=== PATIENT | male | born 1995 | race Caucasian/White ===

== ENCOUNTER 2019-04-16 20:24 | Observation (INO) | payer OTHER ==
[2019-04-16] MEDS ORDERED: SODIUM CHLORIDE 0.9% 500 ML 500 ML IV ONE (21:26)
--- NOTE | 2019-04-16 22:07 | ED ---
General Adult HPI - General Chief complaint: Recheck/Abnormal Lab/Rx Stated complaint: side affects from meds, dizziness blured vision Time Seen by Provider: 04/16/19 21:26 Source: patient Mode of arrival: ambulatory Limitations: no limitations - History of Present Illness Initial comments: Dictation was produced using [employer] dictation software. please excuse any grammatical, word or spelling errors. Chief Complaint: 33-year-old malewith past medical history presents with generalized body weakness, weakness confusion and dizziness. History of Present Illness: Male presents with affirmation complaints. Patient was given prescription for ciprofloxacin yesterday. Patient states his symptoms have been ongoing for 2-3 days. Patient has severe having had symptoms like this in the past. He is coming in by mother. Mother reports that he is significantly weak. Patient states his weakness started his upper extremities and went down to his lower extremities. He does have some left anterior neck pain. Patient denies any shortness of breath. Denies any stool or bladder incontinence. He does have some mild suprapubic tenderness. The ROS documented in this emergency department record has been reviewed and co nfirmed by me. Those systems with pertinent positive or negative responses have been documented in the HPI. All other systems are other negative and/or noncontributory. PHYSICAL EXAM: General Impression: Alert and oriented x3, not in acute distress HEENT: Normocephalic atraumatic, extra-ocular movements intact, pupils equal and reactive to light bilaterally, mucous membranes moist. Cardiovascular: Heart regular rate and rhythm, S1&S2 audible, no murmurs, rubs or gallops Chest: Lungs clear to auscultation bilaterally, no rhonchi, no wheeze, no rales Abdomen: Bowel sounds present, abdomen soft, non-tender, non-distended, no organomegaly Musculoskeletal: Pulses present and equal in all extremities, no peripheral edema Motor: no focal deficits noted Neurological: CN II-XII grossly intact, no focal motor or sensory deficits noted, 3+ out of 5 weakness to all extremities him a slow to move and slow to speak Skin: Intact with no visualized rashes ED course: 23 yo male presents with generalized body weakness. Signs upon arrival are within acceptable limits. Patient appears significantly weak. At this point highly doubt that patient's symptoms are secondary to ciprofloxacin side effect or ALLERGIC reaction. Return evaluation obtained. CBC, metabolic panel is unremarkable. Discussed patient case Dr. Adan. At this point is very unclear what is causing patient's symptoms. He is generally weak however does not have any focal neurologic deficits. This may be related to the ciprofloxacin that he was prescribed given that patient reports that her symptoms started this today and he has been on medications for approximately 2 days. Pending urine studies. We will hold ciprofloxacin for now. Patient admitted with consultation with neurology. [facility] is willing to accept patients care. EKG interpretation: Ventricular rate 67, normal sinus rhythm,. 134, care is 90, QTC 14. No IN prolongation, no QTC prolongation, no ST or T-wave changes noted. Overall, this EKG is unremarkable - Related Data Home Medications Medication Instructions Recorded Confirmed Ciprofloxacin HCl [Cipro] 500 mg PO BID 04/16/19 04/16/19 Allergies Allergy/AdvReac Type Severity Reaction Status Date / Time ceftibuten dihydrate Allergy Rash/Hives Verified 04/16/19 21:30 [From Cedax] sulfamethoxazole Allergy Rash/Hives Verified 04/16/19 21:30 [From Bactrim] trimethoprim [From Bactrim] Allergy Rash/Hives Verified 04/16/19 21:30 Review of Systems ROS Statement: Those systems with pertinent positive or pertinent negative responses have been documented in the HPI. ROS Other: All systems not noted in ROS Statement are negative. Past Medical History Past Medical History: No Reported History History of Any Multi-Drug Resistant Organisms: None Reported Past Surgical History: No Surgical Hx Reported Past Psychological History: No Psychological Hx Reported Smoking Status: Current every day smoker Past Alcohol Use History: Occasional Past Drug Use History: None Reported General Exam Limitations: no limitations Course Vital Signs 04/16/19 21:16 Temperature 97.9 F Pulse Rate 70 Respiratory 16 Rate Blood Pressure 105/73 O2 Sat by Pulse 99 Oximetry Medical Decision Making - Lab Data Result diagrams: 04/16/19 21:41 04/16/19 21:41 Lab Results 04/16/19 04/16/19 04/16/19 Range/Units 21:41 21:41 22:15 WBC 6.8 (3.8-10.6) k/uL RBC 4.87 (4.30-5.90) m/uL Hgb 14.8 (13.0-17.5) gm/dL Hct 43.8 (39.0-53.0) % MCV 89.9 (80.0-100.0) fL MCH 30.4 (25.0-35.0) pg MCHC 33.8 (31.0-37.0) g/dL RDW 12.4 (11.5-15.5) % Plt Count 235 (150-450) k/uL Neutrophils % 61 % Lymphocytes % 27 % Monocytes % 7 % Eosinophils % 2 % Basophils % 1 % Neutrophils # 4.2 (1.3-7.7) k/uL Lymphocytes # 1.8 (1.0-4.8) k/uL Monocytes # 0.5 (0-1.0) k/uL Eosinophils # 0.2 (0-0.7) k/uL Basophils # 0.1 (0-0.2) k/uL Sodium 143 (137-145) mmol/L Potassium 3.9 (3.5-5.1) mmol/L Chloride 105 (98-107) mmol/L Carbon Dioxide 27 (22-30) mmol/L Anion Gap 11 mmol/L BUN 20 (9-20) mg/dL Creatinine 1.03 (0.66-1.25) mg/dL Est GFR (CKD-EPI)AfAm >90 (>60 ml/min/1.73 sqM) Est GFR (CKD-EPI)NonAf >90 (>60 ml/min/1.73 sqM) Glucose 83 (74-99) mg/dL Plasma Lactic Acid Jarred (0.7-2.0) mmol/L Calcium 9.5 (8.4-10.2) mg/dL Magnesium 2.1 (1.6-2.3) mg/dL Total Bilirubin 2.2 H (0.2-1.3) mg/dL AST 19 (17-59) U/L ALT 17 L (21-72) U/L Alkaline Phosphatase 58 (38-126) U/L Creatine Kinase 93 (55-170) U/L Total Protein 7.1 (6.3-8.2) g/dL Albumin 4.6 (3.5-5.0) g/dL 04/16/19 Range/Units 22:15 WBC (3.8-10.6) k/uL RBC (4.30-5.90) m/uL Hgb (13.0-17.5) gm/dL Hct (39.0-53.0) % MCV (80.0-100.0) fL MCH (25.0-35.0) pg MCHC (31.0-37.0) g/dL RDW (11.5-15.5) % Plt Count (150-450) k/uL Neutrophils % % Lymphocytes % % Monocytes % % Eosinophils % % Basophils % % Neutrophils # (1.3-7.7) k/uL Lymphocytes # (1.0-4.8) k/uL Monocytes # (0-1.0) k/uL Eosinophils # (0-0.7) k/uL Basophils # (0-0.2) k/uL Sodium (137-145) mmol/L Potassium (3.5-5.1) mmol/L Chloride (98-107) mmol/L Carbon Dioxide (22-30) mmol/L Anion Gap mmol/L BUN (9-20) mg/dL Creatinine (0.66-1.25) mg/dL Est GFR (CKD-EPI)AfAm (>60 ml/min/1.73 sqM) Est GFR (CKD-EPI)NonAf (>60 ml/min/1.73 sqM) Glucose (74-99) mg/dL Plasma Lactic Acid Jarred 0.8 (0.7-2.0) mmol/L Calcium (8.4-10.2) mg/dL Magnesium (1.6-2.3) mg/dL Total Bilirubin (0.2-1.3) mg/dL AST (17-59) U/L ALT (21-72) U/L Alkaline Phosphatase (38-126) U/L Creatine Kinase (55-170) U/L Total Protein (6.3-8.2) g/dL Albumin (3.5-5.0) g/dL Disposition Clinical Impression: Generalized weakness Disposition: ADMITTED IP TO THIS HOSP Condition: Fair Is patient prescribed a controlled substance at d/c from ED?: No Referrals: Elvis Adan MD [Primary Care Provider] - 1-2 days Decision Time: 00:48
[2019-04-16 22:40] LABS: Magnesium 2.1 mg/dL (1.6-2.3)
--- NOTE | 2019-04-16 23:40 | XR ---
EXAM: XR Chest, 2 Views CLINICAL HISTORY: Chest pain TECHNIQUE: Frontal and lateral views of the chest. COMPARISON: 08/27/2014 FINDINGS: Lungs: Lungs are well aerated. Pleural space: No pneumothorax. No pleural effusions. Heart: Heart is normal in size. Mediastinum: Unremarkable. Bones/joints: No rib fracture. Gentle dextro scoliosis of the thoracic spine. IMPRESSION: No active disease, similar to the previous study.
--- NOTE | 2019-04-16 23:50 | CT ---
EXAM: CT Head Without Intravenous Contrast CLINICAL HISTORY: Headache and neck pain. TECHNIQUE: Axial computed tomography images of the head/brain without intravenous contrast. CTDI is 45.2 mGy and DLP is 996 mGy-cm. This CT exam was performed using one or more of the following dose reduction techniques: automated exposure control, adjustment of the mA and/or kV according to patient size, and/or use of iterative reconstruction technique. CTDI is 11.9 mGy and DLP is 359.9 mGy-cm. This CT exam was performed using one or more of the following dose reduction techniques: automated exposure control, adjustment of the mA and/or kV according to patient size, and/or use of iterative reconstruction technique. COMPARISON: None, None FINDINGS: Brain: No abnormal extra-axial collection. No hemorrhage. Midline shift: No midline shift or mass-effect. Ventricles: Ventricular system is age appropriate. Bones/joints: Bony skull is unremarkable. Straightening and reversal of the curvature of the cervical spine suggestive of muscle spasm. Normal relationship of C1 and C2. Probable hemangioma of the T3 vertebral body incidentally imaged. No acute fracture. Soft tissues: Prevertebral soft tissues are unremarkable. Lung apices are unremarkable. Paraspinal soft tissues are unremarkable. Sinuses: Unremarkable as visualized. No acute sinusitis. Mastoid air cells: Visualized sinuses and mastoid air cells are unremarkable. Other findings: Spinous processes are unremarkable. Transaxial imaging revealed no significant focal abnormalities. IMPRESSION: Straightening and reversal of the curvature of the cervical spine, possibly on the basis of muscle spasm. No acute intracranial pathology.
[2019-04-17 00:34] LABS: Basophils # (A) 0.1 k/uL (0-0.2); Basophils % (A) 1 %; Eosinophils # (A) 0.2 k/uL (0-0.7); Eosinophils % (A) 2 %; HCT 43.8 % (39.0-53.0); HGB 14.8 gm/dL (13.0-17.5); Lymphocytes # (A) 1.8 k/uL (1.0-4.8); Lymphocytes % (A) 27 %; MCH 30.4 pg (25.0-35.0); MCHC 33.8 g/dL (31.0-37.0); MCV 89.9 fL (80.0-100.0); Mean Platelet Volume 7.1; Monocytes # (A) 0.5 k/uL (0-1.0); Monocytes % (A) 7 %; Neutrophils # (A) 4.2 k/uL (1.3-7.7); Neutrophils % (A) 61 %; Platelet Count 235 k/uL (150-450); RBC 4.87 m/uL (4.30-5.90); RDW 12.4 % (11.5-15.5); WBC 6.8 k/uL (3.8-10.6)
[2019-04-17] MEDS ORDERED: NALOXONE 0.4 MG/ML 1 ML VIAL IV PRN (00:36)
[2019-04-17 00:38] LABS: ALT 17 U/L (21-72); AST 19 U/L (17-59); African American GFR (CKD) >90 (>60 ml/min/1.73 sqM); Albumin 4.6 g/dL (3.5-5.0); Alkaline Phosphatase 58 U/L (38-126); Anion Gap 11 mmol/L; Blood Urea Nitrogen 20 mg/dL (9-20); Calcium 9.5 mg/dL (8.4-10.2); Carbon Dioxide 27 mmol/L (22-30); Chloride 105 mmol/L (98-107); Glucose 83 mg/dL (74-99); Potassium 3.9 mmol/L (3.5-5.1); Sodium 143 mmol/L (137-145); Total Bilirubin 2.2 mg/dL (0.2-1.3); Total Protein 7.1 g/dL (6.3-8.2)
[2019-04-17] MEDS ORDERED: SODIUM CHLORIDE 0.9% 1,000 ML IV SCH (00:45)
[2019-04-17 00:46] LABS: Partial Thromboplastin Time 26.3 sec (22.0-30.0); Prothrombin Time 10.6 sec (9.0-12.0)
[2019-04-17 00:57] LABS: Appearance,Urine Clear (Clear); Bilirubin,Urine Negative (Negative); Blood,Urine Negative (Negative); Color,Urine Yellow; Glucose,Urine (UA) Negative (Negative); Ketones,Urine Negative (Negative); Leukocyte Esterase,Urine Negative (Negative); Nitrite,Urine Negative (Negative); Protein,Urine Trace (Negative); Specific Gravity,Urine 1.029 (1.001-1.035); Urobilinogen,Urine <2.0 mg/dL (<2.0)
[2019-04-17 01:13] LABS: Amphetamine Screen,Urine Not Detected (NotDetected); Barbiturate Screen,Urine Not Detected (NotDetected); Benzodiazepines Screen,Urine Not Detected (NotDetected); Cocaine Screen,Urine Not Detected (NotDetected); Methadone Screen, Urine Not Detected (NotDetected); Opiate Screen,Urine Not Detected (NotDetected); Oxycodone Screen, Urine Not Detected (NotDetected); Phencyclidine Screen,Urine Not Detected (NotDetected); Tricyclic Antidepressant,Urine Not Detected (NotDetected); Urn Cannabinoid Scrn Not Detected (NotDetected)
[2019-04-17 03:57] VITALS: BMI 20.2
--- NOTE | 2019-04-17 08:21 | P.HPIM ---
History of Present Illness H&P Date: 04/17/19 Chief Complaint: Generalized weakness. This is a history and physical on a 23-year-old white male who was supposedly given ciprofloxacin for UTI symptomatology. Shortly after this episode of taking the medication, he had sudden onset of generalized weakness and dizziness he states intermittent blurry vision which resolved once he came to the emergency room. He now presents because of significant weakness. No history of illicit substance abuse stated. No overt nausea or vomiting. But upper extremity weakness is noted on examination. He is also having significant lower extremity weakness. No overt numbness or tingling. Cranial nerve testing does not reveal any type of abnormality. Pupils are equal and he seems more weak on the motor aspect of his examination. No appetite issues. No voiding difficulties. No overt saddle numbness. Review of Systems Constitutional: Denies chills, Denies fever Eyes: bilateral blurred vision, denies pain Ears, nose, mouth and throat: Denies headache, Denies sore throat Cardiovascular: Denies chest pain, Denies shortness of breath Respiratory: Denies cough Gastrointestinal: Denies abdominal pain, Denies diarrhea, Denies nausea, Denies vomiting Musculoskeletal: Reports muscle weakness Integumentary: Denies pruritus, Denies rash Neurological: Reports balance difficulties, Reports numbness, Reports weakness, Denies headaches, Denies syncope, Denies tremors Psychiatric: Denies anxiety, Denies depression Endocrine: Denies fatigue, Denies weight change Past Medical History Past Medical History: No Reported History History of Any Multi-Drug Resistant Organisms: None Reported Past Surgical History: No Surgical Hx Reported Past Psychological History: No Psychological Hx Reported Smoking Status: Current every day smoker Past Alcohol Use History: Occasional Past Drug Use History: None Reported - Past Family History Mother Family Medical History: No Reported History Medications and Allergies Home Medications Medication Instructions Recorded Confirmed Type Ciprofloxacin HCl [Cipro] 500 mg PO BID 04/16/19 04/16/19 History Allergies Allergy/AdvReac Type Severity Reaction Status Date / Time ceftibuten dihydrate Allergy Rash/Hives Verified 04/16/19 21:30 [From Cedax] sulfamethoxazole Allergy Rash/Hives Verified 04/16/19 21:30 [From Bactrim] trimethoprim [From Bactrim] Allergy Rash/Hives Verified 04/16/19 21:30 Physical Exam Vitals: Vital Signs Temp Pulse Pulse Resp BP BP Pulse Ox 04/17/19 04:41 97.5 F L 54 L 16 100/64 99 04/17/19 02:35 97.8 F 58 L 16 100/59 99 04/17/19 01:20 54 L 16 97/67 97 04/16/19 21:16 97.9 F 70 16 105/73 99 Intake and Output 04/16/19 04/17/19 04/17/19 22:59 06:59 14:59 Intake Total 460 Balance 460 Intake: Intake, IV Titration 100 Amount Sodium Chloride 0.9% 1, 100 000 ml @ 20 mls/hr IV . Q24H [facility] Rx#:[id number] Oral 360 Other: Weight 60.464 kg - Constitutional General appearance: no acute distress - EENT Eyes: EOMI - Neck Neck: no lymphadenopathy - Respiratory Respiratory: bilateral: CTA - Cardiovascular Rhythm: regular Heart sounds: normal: S1, S2 Abnormal Heart Sounds: no S3 Gallop - Gastrointestinal General gastrointestinal: no soft, no tenderness - Integumentary Integumentary: no cellulitis - Musculoskeletal There is significant weakness on pet handler strength of the arms/hands bilaterally. I would rate 4/5 to dorsiflexion bilaterally with 4/5 plantar flexion lower extremities. He he does not state any difference in feeling to gross touch in the extremities bilaterally however. - Psychiatric Psychiatric: A&O x's 3, appropriate affect, intact judgment & insight Results CBC & Chem 7: 04/16/19 21:41 04/16/19 21:41 Labs: Abnormal Lab Results - Last 24 Hours (Table) 04/16/19 04/17/19 Range/Units 21:41 00:38 Total Bilirubin 2.2 H (0.2-1.3) mg/dL ALT 17 L (21-72) U/L Urine Protein Trace H (Negative) Thrombosis Risk Factor Assmnt - Choose All That Apply Any of the Below Risk Factors Present?: No Other Risk Factors: No Other congenital or acquired thrombophilia - If yes, enter type in comment: No Thrombosis Risk Factor Assessment Level: Very Low Risk Assessment and Plan (1) Medication side effect Current Visit: Yes Status: Acute Code(s): T88.7XXA - UNSP ADVERSE EFFECT OF DRUG OR MEDICAMENT, INIT ENCNTR SNOMED Code(s): 277773321 (2) Generalized weakness Current Visit: Yes Status: Acute Code(s): R53.1 - WEAKNESS SNOMED Code(s): 64287246 Plan: Given his neurologic presentation, await consultation from neurologic service. Check TSH and thyroid studies if not done on admission. Otherwise laboratory examination will be reviewed. Question need for PT if he does not significantly improve. He does not present with any type of meningeal signs at this time. Otherwise, affect seems flat. Time with Patient: Greater than 30
[2019-04-17] MEDS ORDERED: ACETAMINOPHEN TAB 325 MG TAB PO PRN (16:45)
[2019-04-17] MEDS ORDERED: PANTOPRAZOLE 40 MG TABLET PO SCH (17:00)
[2019-04-17 20:16] VITALS: BP 95/53; PULSE 57; RESP 16; TEMP 98.6
--- NOTE | 2019-04-17 23:48 | P.CNNES ---
History of Present Illness Consult date: 04/17/19 Reason for Consult: Neuropathy Chief complaint: UTI, sudden onset generalized weakness and dizziness with intermittent blur History of Present Illness: REFERRING PHYSICIAN: Dr. Teodoro Funk HISTORY OF PRESENT ILLNESS: Thank you for allowing me to evaluate Gabriele Church. Ms. Church is a 23-year-old man with no known past medical history presented to [facility] for LE weakness x 1 day. Patient's mother is at bedside. Two days ago, patient had an abdominal pain (unlike usual stomach pains) for which he went to an OSH, diagnosed with UTI and given ciprofloxacin. There was an episode of severe diarrhea x1 that they're not sure when exactly happened. Patient took the medication and stayed at his mother's place to recuperate. The day after, patient started having weakness in his legs and also started involving his arms soon after. He's not sure if the leg weakness started from his feet and ascended or the entire leg acutely became weak all together. Patient reporting blurred vision during this episode. Patient denies any numbness or tingling in his arms or legs. Patient denies any recent sickness, headache, fever, nausea, vomiting, travel, sick contact. Never had a similar episode before. Patient denies having saddle anesthesia (any decreased sensation when he wiped himself this morning) Patient states that he is having BM and have urinated, but not since 9am this morning (patient evaluated at 6pm). Patient doesn't feel the need to go to the bathroom. Bladder screen showing 340cc of volume, and when patient tried to urinate, could not get much out. PAST MEDICAL HISTORY: No known past medical history PAST SURGICAL HISTORY: No surgical history HOME MEDICATIONS: Ciprofloxacin. ALLERGIES: Sulfamethoxazole, trimethoprim, ceftibuten SOCIAL HISTORY: Current smoker. Social drinker. FAMILY HISTORY: No hx of neuroloigcal condition. REVIEW OF SYSTEMS: The 14 systems are reviewed and no additional points are identified compared to the review of systems documented history and physical PHYSICAL EXAMINATION: VITAL SIGNS: T 98.6 HR 57 RR 16 BP 95/53 O2 sat 97% on RA GEN.: NAD, pleasant and cooperative HEENT: NCAT, sclera without icterus NECK: Supple SKIN AND EXTREMITIES: Warm to touch, no edema NEURO: MENTAL STATUS: Patient alert and oriented to self, place, time. Able to name the current president. Speech fluent, able to name and repeat, following all commands readily. No right and left disorientation, extinction to double simultaneous stimulation, finger agnosia, neglect. CRANIAL NERVES II THROUGH XII: II: Pupils are equal and reactive to light symmetrically. No afferent pupillary defect. Visual hammond are intact. III, IV, : No ptosis. Extraocular movements full. No nystagmus. V: Facial sensation intact from V1-3. VII. No clear facial asymmetry. VIII: Hearing intact to finger rub bilaterally. IX, X: Symmetric palate elevation. XI: Shoulder shrug intact. XII: Tongue midline without fasciculation or atrophy. MOTOR: Normal bulk. Decreased tone. 3/5 in all 4 extremities SENSORY: Intact to light touch. Decreased to temperature and pinprick in b/l UE but intact in b/l LE. Vibration intact in all 4 extremities. Trunk sensation intact. REFLEXES: Brisk throughout. Toes are downgoing. Shabana's is absent. Patient refused getting rectal tone checked. COORDINATION: Finger to nose intact although limited by weakness. No dy smetria. GAIT: Deferred due to LE weakness. DIAGNOSTIC TESTING: LABORATORY: WBC 6.8 hemoglobin 14.8 platelet 235 PT 10.6 INR 1.0 sodium 143 potassium 3.9 chloride 105 bicarb 27 BUN 20 creatinine 1.03 AST 19 ALT 17 alk phos 58 urinalysis negative urine toxicology negative IMAGING: CT head and neck without contrast 04/16/2019: Straightening and reversal of the curvature of the cervical spine, possibly on the basis of muscle spasm. No acute intracranial pathology. ASSESSMENT: Ms. Church is a 23-year-old man with no known past medical history presented to [facility] for LE weakness x 1 day. There's an acute change in weakness in 1 day, involving both b/l UE and LE. It is unusual that the sensation deficits (decreased temperature and pinprick) is only present in b/l UE. Patient showing weakness in all 4 extremities however along with most likely urinary retention and brisk reflexes throughout. There is concern about myelopathy causing his symptoms. Coordinating with [facility] for transfer for LP, MRI c-/t-/l-spine along with possible neurosurgery consult. RECOMMENDATIONS: 1. Transfer to [facility] 2. Lumbar Puncture for CSF RBC, WBC, protein, glucose, culture 3. MRI c-/t-/l-spine 4. Neurology consult 5. Neurosurgery consult 6. Please feel free to contact me regarding this patient at any time with additional questions or concerns. Past Medical History Past Medical History: No Reported History History of Any Multi-Drug Resistant Organisms: None Reported Past Surgical History: No Surgical Hx Reported Past Psychological History: No Psychological Hx Reported Smoking Status: Current every day smoker Past Alcohol Use History: Occasional Past Drug Use History: None Reported - Past Family History Mother Family Medical History: No Reported History Medications and Allergies Home Medications Medication Instructions Recorded Confirmed Type Ciprofloxacin HCl [Cipro] 500 mg PO BID 04/16/19 04/16/19 History Allergies Allergy/AdvReac Type Severity Reaction Status Date / Time ceftibuten dihydrate Allergy Rash/Hives Verified 04/16/19 21:30 [From Cedax] sulfamethoxazole Allergy Rash/Hives Verified 04/16/19 21:30 [From Bactrim] trimethoprim [From Bactrim] Allergy Rash/Hives Verified 04/16/19 21:30 Physical Examination - Vital Signs Vital Signs: Vital Signs Temp Pulse Pulse Resp BP BP Pulse Ox 04/17/19 04:41 97.5 F L 54 L 16 100/64 99 04/17/19 02:35 97.8 F 58 L 16 100/59 99 04/17/19 01:20 54 L 16 97/67 97 04/16/19 21:16 97.9 F 70 16 105/73 99 Intake and Output 04/16/19 04/17/19 04/17/19 22:59 06:59 14:59 Intake Total 460 Balance 460 Intake: Intake, IV Titration 100 Amount Sodium Chloride 0.9% 1, 100 000 ml @ 20 mls/hr IV . Q24H [facility] Rx#:[id number] Oral 360 Other: Weight 60.464 kg Results - Laboratory Findings CBC and BMP: 04/16/19 21:41 04/16/19 21:41 Abnormal Lab Findings: Abnormal Labs 04/16/19 04/17/19 21:41 00:38 Total Bilirubin 2.2 H ALT 17 L Urine Protein Trace H
== END 2019-04-18 | disposition other institution (70) ==
LOC: EC 20:24 → 3NMEDONC 04-17 00:36
PROVIDERS: ADMIT Family Medicine; ATTEND Family Medicine
DX: R53.1 Weakness (principal); T36.8X5A Adverse effect of other systemic antibiotics, initial encounter; R42 Dizziness and giddiness; R41.0 Disorientation, unspecified; M54.2 Cervicalgia; H53.8 Other visual disturbances; F17.200 Nicotine dependence, unspecified, uncomplicated; Z88.2 Allergy status to sulfonamides; Z88.1 Allergy status to other antibiotic agents
CPT/HCPCS: 99285; 51798; 36415; 93005; 97116; 97161; 80053; 84443; 82550; 83605; 83735; 84484; 85025; 85610; 85730; 81003; 80306; 87086; 71046; 72125; 70450; G0378

== ENCOUNTER 2019-05-09 23:38 | Emergency (ER) | payer OTHER ==
[2019-05-09 23:49] VITALS: BP 113/73; PULSE 69; RESP 18; TEMP 98
[2019-05-10] MEDS ORDERED: IBUPROFEN 600 MG TAB PO STA (00:22)
--- NOTE | 2019-05-10 00:45 | XR ---
EXAMINATION TYPE: XR foot complete RT DATE OF EXAM: 05/10/2019 COMPARISON: NONE HISTORY: Foot pain TECHNIQUE: 3 views FINDINGS: Metatarsals are intact. I see no fracture nor dislocation. Joint spaces are fairly normal. IMPRESSION: Negative right foot exam.
--- NOTE | 2019-05-10 00:56 | ED ---
Lower Extremity Injury HPI - General Chief Complaint: Extremity Injury, Lower Stated Complaint: Foot pain Time Seen by Provider: 05/10/19 00:05 Source: patient Mode of arrival: ambulatory Limitations: no limitations - History of Present Illness Initial Comments: is 23-year-old man who comes in with complaint that he has developed right foot pain over the past days. Patient denies any known injury to his foot. He states that is mainly when he attempts to bear weight and he indicates the area below the first 3 metatarsals. Patient states that the pain is better when he is not bearing weight. Patient denies fever or chills. He has not had any redness or warmth to the foot. MD Complaint: foot injury -: week(s) Injury: Foot: Right Place: home Severity: moderate Improves With: nothing Worsens With: weight bearing - Related Data Home Medications Medication Instructions Recorded Confirmed Ciprofloxacin HCl [Cipro] 500 mg PO BID 04/16/19 04/16/19 Previous Rx's Medication Instructions Recorded Ibuprofen [Motrin] 600 mg PO Q8HR PRN #20 tab 05/10/19 Allergies Allergy/AdvReac Type Severity Reaction Status Date / Time ceftibuten dihydrate Allergy Rash/Hives Verified 04/16/19 21:30 [From Cedax] ciprofloxacin Allergy Unknown Verified 05/09/19 23:49 sulfamethoxazole Allergy Rash/Hives Verified 04/16/19 21:30 [From Bactrim] trimethoprim [From Bactrim] Allergy Rash/Hives Verified 04/16/19 21:30 Review of Systems ROS Statement: Those systems with pertinent positive or pertinent negative responses have been documented in the HPI. ROS Other: All systems not noted in ROS Statement are negative. Constitutional: Denies: fever, chills, weakness Cardiovascular: Denies: chest pain, palpitations Musculoskeletal: Reports: as per HPI, arthralgia Skin: Denies: rash, lesions Neurological: Denies: weakness, numbness, paresthesias Past Medical History Past Medical History: No Reported History History of Any Multi-Drug Resistant Organisms: None Reported Past Surgical History: No Surgical Hx Reported Past Psychological History: No Psychological Hx Reported Smoking Status: Current every day smoker Past Alcohol Use History: Occasional Past Drug Use History: None Reported - Past Family History Mother Family Medical History: No Reported History General Exam Limitations: no limitations General appearance: alert, in no apparent distress Cardiovascular Exam: Present: other (Dorsalis pedis and posterior tibialis pulses normal, right foot. Capillary refill normal.) Extremities exam: Present: normal inspection, full ROM, tenderness, normal capillary refill, other (Is tenderness along the origin of the plantar fascia below the first three metatarsals). Absent: pedal edema Neurological exam: Present: alert. Absent: motor sensory deficit Course Vital Signs 05/09/19 23:46 Temperature 98 F Pulse Rate 69 Respiratory 18 Rate Blood Pressure 113/73 O2 Sat by Pulse 100 Oximetry Disposition Clinical Impression: Foot pain, right, Plantar fasciitis of right foot Disposition: HOME SELF-CARE Condition: Good Instructions (If sedation given, give patient instructions): Plantar Fasciitis (ED) Prescriptions: Ibuprofen [Motrin] 600 mg PO Q8HR PRN #20 tab PRN Reason: Pain Is patient prescribed a controlled substance at d/c from ED?: No Referrals: None,Stated [Primary Care Provider] - 1-2 days
== END 2019-05-10 01:57 | disposition home or self-care (01) ==
LOC: EC 23:38
DX: M72.2 Plantar fascial fibromatosis (principal); F17.200 Nicotine dependence, unspecified, uncomplicated; Z88.1 Allergy status to other antibiotic agents; Z88.2 Allergy status to sulfonamides
CPT/HCPCS: 99283

== ENCOUNTER 2019-08-21 21:41 | Emergency (ER) | payer OTHER ==
[2019-08-21 21:47] LABS: Glucose,Whole Blood 84 mg/dL (75-99)
[2019-08-21] MEDS ORDERED: SODIUM CHLORIDE 0.9% 1,000 ML IV STA ×2 (21:48)
--- NOTE | 2019-08-21 21:48 | ED ---
Seizure HPI - General Stated Complaint: seizure Time Seen by Provider: 08/21/19 21:47 - History of Present Illness Initial Comments: Gabriele is a pleasant previously healthy 23-year-old male who is brought to the ER today via ambulance for evaluation of possible seizure-like activity. Mom reports that she was at home when she got a call that he was having a seizure. She went there and noticed about 10 minutes of him shaking. She states that she was able to talk to him during this and bring him out of it. Afterwards he wasn't speaking. After 10 minutes of seizure she contacted EMS who arrived. She reported he had approximately 20 minutes of shaking prior to EMS arrival. He wasn't speaking after the event. He had no tongue biting no loss of bowel or bladder continence. He has no seizure history. Denies any drug or alcohol use. - Related Data Home Medications Medication Instructions Recorded Confirmed Ciprofloxacin HCl [Cipro] 500 mg PO BID 04/16/19 04/16/19 Previous Rx's Medication Instructions Recorded Ibuprofen [Motrin] 600 mg PO Q8HR PRN #20 tab 05/10/19 Allergies Allergy/AdvReac Type Severity Reaction Status Date / Time ceftibuten dihydrate Allergy Rash/Hives Verified 04/16/19 21:30 [From Cedax] ciprofloxacin Allergy Unknown Verified 05/09/19 23:49 sulfamethoxazole Allergy Rash/Hives Verified 04/16/19 21:30 [From Bactrim] trimethoprim [From Bactrim] Allergy Rash/Hives Verified 04/16/19 21:30 Review of Systems ROS Statement: Those systems with pertinent positive or pertinent negative responses have been documented in the HPI. ROS Other: All systems not noted in ROS Statement are negative. Past Medical History Past Medical History: No Reported History History of Any Multi-Drug Resistant Organisms: None Reported Past Surgical History: No Surgical Hx Reported Past Psychological History: No Psychological Hx Reported Smoking Status: Current every day smoker Past Alcohol Use History: Occasional Past Drug Use History: None Reported - Past Family History Mother Family Medical History: No Reported History General Exam - General Exam Comments Initial Comments: Physical Exam GENERAL: Patient is well-developed and well-nourished. Patient is nontoxic and well-hydrated and is in no distress. HENT: Normocephalic, Atraumatic. EYES: PERRL, EOMI PULMONARY: Unlabored respirations. No audible rales rhonchi or wheezing was noted. CARDIOVASCULAR: There is a regular rate and rhythm without any murmurs gallops or rubs. ABDOMEN: Soft and nontender with normal bowel sounds. SKIN: Skin is clear with no lesions or rashes and otherwise unremarkable. : Deferred NEUROLOGIC: Patient is alert and oriented x3. Moving all extremities spontaneously MUSCULOSKELETAL: Normal extremities with adequate strength and full range of motion. No lower extremity swelling or edema. No calf tenderness. PSYCHIATRIC: Normal psychiatric evaluation. Course Vital Signs 08/21/19 21:43 Temperature 98.9 F Pulse Rate 68 Respiratory 18 Rate Blood Pressure 113/87 O2 Sat by Pulse 100 Oximetry Medical Decision Making - Medical Decision Making The patient was seen and evaluated, upon arrival patient would make eye contact when I said his voice but was not answering any questions. Mother provided history. Labs were obtained. Patient was moving all extremities breathing sp ontaneously normal vital signs. Labs and head CT were unremarkable lactic acid was not elevated Return to the room to reevaluate the patient reports he's feeling much better. Patient states that he aches everything that happened today is due to stress. Patient states he has a friend who has terminal cancer who is been made hospice and they're expecting him to in the next week. He states that he just is having trouble coping with all of this. At this time patient and mom are comfortable with plan for discharge home and outpatient follow-up. - Lab Data Result diagrams: 08/21/19 21:55 08/21/19 21:55 Lab Results 08/21/19 08/21/19 08/21/19 Range/Units 21:46 21:55 21:55 WBC 6.4 (3.8-10.6) k/uL RBC 5.14 (4.30-5.90) m/uL Hgb 15.5 (13.0-17.5) gm/dL Hct 46.8 (39.0-53.0) % MCV 91.0 (80.0-100.0) fL MCH 30.2 (25.0-35.0) pg MCHC 33.1 (31.0-37.0) g/dL RDW 11.6 (11.5-15.5) % Plt Count 215 (150-450) k/uL Neutrophils % 58 % Lymphocytes % 27 % Monocytes % 7 % Eosinophils % 3 % Basophils % 1 % Neutrophils # 3.7 (1.3-7.7) k/uL Lymphocytes # 1.8 (1.0-4.8) k/uL Monocytes # 0.5 (0-1.0) k/uL Eosinophils # 0.2 (0-0.7) k/uL Basophils # 0.1 (0-0.2) k/uL Sodium 139 (137-145) mmol/L Potassium 4.1 (3.5-5.1) mmol/L Chloride 105 (98-107) mmol/L Carbon Dioxide 26 (22-30) mmol/L Anion Gap 8 mmol/L BUN 19 (9-20) mg/dL Creatinine 1.10 (0.66-1.25) mg/dL Est GFR (CKD-EPI)AfAm >90 (>60 ml/min/1.73 sqM) Est GFR (CKD-EPI)NonAf >90 (>60 ml/min/1.73 sqM) Glucose 88 (74-99) mg/dL POC Glucose (mg/dL) 84 (75-99) mg/dL POC Glu Welt Tr[employer] Machine Operator ID [facility] Plasma Lactic Acid Jarred (0.7-2.0) mmol/L Calcium 9.6 (8.4-10.2) mg/dL Total Bilirubin 1.6 H (0.2-1.3) mg/dL AST 21 (17-59) U/L ALT 15 (4-49) U/L Alkaline Phosphatase 60 (38-126) U/L Total Protein 7.3 (6.3-8.2) g/dL Albumin 4.6 (3.5-5.0) g/dL Urine Color Urine Appearance (Clear) Urine pH (5.0-8.0) Ur Specific [place] (1.001-1.035) Urine Protein (Negative) Urine Glucose (UA) (Negative) Urine Ketones (Negative) Urine Blood (Negative) Urine Nitrite (Negative) Urine Bilirubin (Negative) Urine Urobilinogen (<2.0) mg/dL Ur Leukocyte Esterase (Negative) Urine RBC (0-5) /hpf Urine WBC (0-5) /hpf Salicylates <1.0 mg/dL Urine Opiates Screen (NotDetected) Ur Oxycodone Screen (NotDetected) Urine Methadone Screen (NotDetected) Ur Propoxyphene Screen (NotDetected) Acetaminophen <10.0 ug/mL Ur Barbiturates Screen (NotDetected) U Tricyclic Antidepress (NotDetected) Ur Phencyclidine Scrn (NotDetected) Ur Amphetamines Screen (NotDetected) U Methamphetamines Scrn (NotDetected) U Benzodiazepines Scrn (NotDetected) Urine Cocaine Screen (NotDetected) U Marijuana (THC) Screen (NotDetected) Serum Alcohol <10 mg/dL 08/21/19 08/21/19 Range/Units 21:55 22:21 WBC (3.8-10.6) k/uL RBC (4.30-5.90) m/uL Hgb (13.0-17.5) gm/dL Hct (39.0-53.0) % MCV (80.0-100.0) fL MCH (25.0-35.0) pg MCHC (31.0-37.0) g/dL RDW (11.5-15.5) % Plt Count (150-450) k/uL Neutrophils % % Lymphocytes % % Monocytes % % Eosinophils % % Basophils % % Neutrophils # (1.3-7.7) k/uL Lymphocytes # (1.0-4.8) k/uL Monocytes # (0-1.0) k/uL Eosinophils # (0-0.7) k/uL Basophils # (0-0.2) k/uL Sodium (137-145) mmol/L Potassium (3.5-5.1) mmol/L Chloride (98-107) mmol/L Carbon Dioxide (22-30) mmol/L Anion Gap mmol/L BUN (9-20) mg/dL Creatinine (0.66-1.25) mg/dL Est GFR (CKD-EPI)AfAm (>60 ml/min/1.73 sqM) Est GFR (CKD-EPI)NonAf (>60 ml/min/1.73 sqM) Glucose (74-99) mg/dL POC Glucose (mg/dL) (75-99) mg/dL POC Glu [employer] Operator ID Plasma Lactic Acid Jarred 0.9 (0.7-2.0) mmol/L Calcium (8.4-10.2) mg/dL Total Bilirubin (0.2-1.3) mg/dL AST (17-59) U/L ALT (4-49) U/L Alkaline Phosphatase (38-126) U/L Total Protein (6.3-8.2) g/dL Albumin (3.5-5.0) g/dL Urine Color Light Yellow Urine Appearance Clear (Clear) Urine pH 6.5 (5.0-8.0) Ur Specific [place] 1.008 (1.001-1.035) Urine Protein Negative (Negative) Urine Glucose (UA) Negative (Negative) Urine Ketones Negative (Negative) Urine Blood Trace H (Negative) Urine Nitrite Negative (Negative) Urine Bilirubin Negative (Negative) Urine Urobilinogen <2.0 (<2.0) mg/dL Ur Leukocyte Esterase Negative (Negative) Urine RBC 1 (0-5) /hpf Urine WBC 1 (0-5) /hpf Salicylates mg/dL Urine Opiates Screen Not Detected (NotDetected) Ur Oxycodone Screen Not Detected (NotDetected) Urine Methadone Screen Not Detected (NotDetected) Ur Propoxyphene Screen Not Detected (NotDetected) Acetaminophen ug/mL Ur Barbiturates Screen Not Detected (NotDetected) U Tricyclic Antidepress Not Detected (NotDetected) Ur Phencyclidine Scrn Not Detected (NotDetected) Ur Amphetamines Screen Not Detected (NotDetected) U Methamphetamines Scrn Not Detected (NotDetected) U Benzodiazepines Scrn Not Detected (NotDetected) Urine Cocaine Screen Not Detected (NotDetected) U Marijuana (THC) Screen Not Detected (NotDetected) Serum Alcohol mg/dL Disposition Clinical Impression: Seizure-like activity Disposition: HOME SELF-CARE Condition: Stable Instructions (If sedation given, give patient instructions): New-Onset Seizure in Adults (ED) Is patient prescribed a controlled substance at d/c from ED?: No Referrals: Elvis Adan MD [Primary Care Provider] - 1-2 days Kiersten Stephen MD [STAFF PHYSICIAN] - 1-2 days Alon Stephen MD [STAFF PHYSICIAN] - 1-2 days Jose Pleitez MD [STAFF PHYSICIAN] - 1-2 days Nolan Lyons MD [Medical Doctor] - 1-2 days
[2019-08-21 21:55] VITALS: RESP 18; TEMP 98.9
[2019-08-21 22:05] LABS: Basophils # (A) 0.1 k/uL (0-0.2); Basophils % (A) 1 %; Eosinophils # (A) 0.2 k/uL (0-0.7); Eosinophils % (A) 3 %; HCT 46.8 % (39.0-53.0); HGB 15.5 gm/dL (13.0-17.5); Lymphocytes # (A) 1.8 k/uL (1.0-4.8); Lymphocytes % (A) 27 %; MCH 30.2 pg (25.0-35.0); MCHC 33.1 g/dL (31.0-37.0); Mean Platelet Volume 7.3; Monocytes # (A) 0.5 k/uL (0-1.0); Monocytes % (A) 7 %; Neutrophils # (A) 3.7 k/uL (1.3-7.7); Neutrophils % (A) 58 %; Platelet Count 215 k/uL (150-450); RBC 5.14 m/uL (4.30-5.90); RDW 11.6 % (11.5-15.5); WBC 6.4 k/uL (3.8-10.6)
[2019-08-21 22:18] LABS: ALT 15 U/L (4-49); AST 21 U/L (17-59); Acetaminophen <10.0 ug/mL; African American GFR (CKD) >90 (>60 ml/min/1.73 sqM); Albumin 4.6 g/dL (3.5-5.0); Alcohol <10 mg/dL; Alkaline Phosphatase 60 U/L (38-126); Anion Gap 8 mmol/L; Blood Urea Nitrogen 19 mg/dL (9-20); Calcium 9.6 mg/dL (8.4-10.2); Carbon Dioxide 26 mmol/L (22-30); Chloride 105 mmol/L (98-107); Glucose 88 mg/dL (74-99); Non-African American GFR(CKD) >90 (>60 ml/min/1.73 sqM); Potassium 4.1 mmol/L (3.5-5.1); Salicylate <1.0 mg/dL; Sodium 139 mmol/L (137-145); Total Bilirubin 1.6 mg/dL (0.2-1.3); Total Protein 7.3 g/dL (6.3-8.2)
--- NOTE | 2019-08-21 22:23 | CT ---
EXAMINATION TYPE: CT brain wo con DATE OF EXAM: 08/21/2019 COMPARISON: 10/04/2007 and 04/16/2019 HISTORY: Possible seziure. confused CT DLP: 1099.4 mGycm Automated exposure control for dose reduction was used. Ventricles have normal size. There is no mass effect nor midline shift. There is no sign of intracran ial hemorrhage. The calvarium is intact. There is no evidence of cerebral edema. IMPRESSION: Negative CT scan of the brain. No change.
[2019-08-21 22:45] LABS: Appearance,Urine Clear (Clear); Bilirubin,Urine Negative (Negative); Blood,Urine Trace (Negative); Color,Urine Light Yellow; Glucose,Urine (UA) Negative (Negative); Ketones,Urine Negative (Negative); Leukocyte Esterase,Urine Negative (Negative); Nitrite,Urine Negative (Negative); PH, Urine 6.5 (5.0-8.0); Protein,Urine Negative (Negative); RBC,Urine 1 /hpf (0-5); Specific Gravity,Urine 1.008 (1.001-1.035); Urobilinogen,Urine <2.0 mg/dL (<2.0); WBC,Urine 1 /hpf (0-5)
[2019-08-21 22:52] LABS: Amphetamine Screen,Urine Not Detected (NotDetected); Barbiturate Screen,Urine Not Detected (NotDetected); Benzodiazepines Screen,Urine Not Detected (NotDetected); Cocaine Screen,Urine Not Detected (NotDetected); Methadone Screen, Urine Not Detected (NotDetected); Opiate Screen,Urine Not Detected (NotDetected); Oxycodone Screen, Urine Not Detected (NotDetected); Phencyclidine Screen,Urine Not Detected (NotDetected); Tricyclic Antidepressant,Urine Not Detected (NotDetected); Urn Cannabinoid Scrn Not Detected (NotDetected)
[2019-08-21 23:22] VITALS: BP 117/77; PULSE 64
[2019-08-22 02:34] LABS: Prolactin 3.4 ng/mL (2.1-17.7)
== END 2019-08-21 23:22 | disposition home or self-care (01) ==
LOC: EC 21:41
DX: R56.9 Unspecified convulsions (principal); F17.200 Nicotine dependence, unspecified, uncomplicated; Z88.1 Allergy status to other antibiotic agents; Z88.2 Allergy status to sulfonamides; Z63.79 Other stressful life events affecting family and household
CPT/HCPCS: 99285; 96360; 36415; 93005; 80053; 83605; 85025; 81001; 84146; 80306; 83520; 70450; G0480 ×2; 80320; 80329

== ENCOUNTER 2019-10-24 17:33 | Emergency (ER) | payer OTHER ==
[2019-10-24 17:43] VITALS: BP 117/69; PULSE 67; RESP 18; TEMP 97.4
[2019-10-24] MEDS ORDERED: KETOROLAC 30 MG/ML 1 ML VIAL IM STA (17:51)
--- NOTE | 2019-10-24 17:56 | ED ---
Upper Extremity HPI - General Chief Complaint: Extremity Injury, Upper Stated Complaint: Shoulder injury (work injury) Time Seen by Provider: 10/24/19 17:43 Source: patient Mode of arrival: ambulatory Limitations: no limitations - History of Present Illness Initial Comments: Patient is a 23-year-old male presenting to emergency Department with a chief c omplaint of right shoulder pain. 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 He states his he attempted to lift an object, he felt a ripping sensation in the posterior deltoid region, as well as the top of the right shoulder blade. Denies any numbness tingling. Does report limited range of motion due to pain. States he is not able to lift his right hand. He does report taking ibuprofen with minimal improvement in symptoms. Complaint: Injury to:: shoulder Onset/Timin -: hour(s) Other Extremity Injury: Shoulder: Right - Related Data Home Medications Medication Instructions Recorded Confirmed Ciprofloxacin HCl [Cipro] 500 mg PO BID 04/16/19 04/16/19 Previous Rx's Medication Instructions Recorded Ibuprofen [Motrin] 600 mg PO Q8HR PRN #20 tab 05/10/19 Allergies Allergy/AdvReac Type Severity Reaction Status Date / Time ceftibuten dihydrate Allergy Rash/Hives Verified 10/24/19 17:39 [From Cedax] ciprofloxacin Allergy Unknown Verified 10/24/19 17:39 sulfamethoxazole Allergy Rash/Hives Verified 10/24/19 17:39 [From Bactrim] trimethoprim [From Bactrim] Allergy Rash/Hives Verified 10/24/19 17:39 Review of Systems ROS Statement: Those systems with pertinent positive or pertinent negative responses have been documented in the HPI. ROS Other: All systems not noted in ROS Statement are negative. Past Medical History Past Medical History: No Reported History History of Any Multi-Drug Resistant Organisms: None Reported Past Surgical History: No Surgical Hx Reported Past Psychological History: No Psychological Hx Reported Smoking Status: Current every day smoker Past Alcohol Use History: Rare Past Drug Use History: None Reported - Past Family History Mother Family Medical History: No Reported History General Exam Limitations: no limitations General appearance: alert, in no apparent distress Head exam: Present: atraumatic, normocephalic, normal inspection Eye exam: Present: normal appearance, PERRL, EOMI Pupils: Present: normal accommodation ENT exam: Present: normal exam Neck exam: Present: normal inspection, full ROM Respiratory exam: Present: normal lung sounds bilaterally Cardiovascular Exam: Present: regular rate, normal rhythm, normal heart sounds Extremities exam: Present: normal inspection, tenderness (Posterior deltoid tenderness. Tenderness near the superior region of the right scapula.), normal capillary refill, other (+2 ulnar and radial pulses bilaterally.). Absent: full ROM (Limited range of motion with abduction above 15. Positive empty can test.) Back exam: Present: normal inspection, full ROM Neurological exam: Present: alert, oriented X3 Psychiatric exam: Present: normal affect, normal mood Skin exam: Present: warm, dry, intact, normal color Course Vital Signs 10/24/19 17:39 Temperature 97.4 F L Pulse Rate 67 Respiratory 18 Rate Blood Pressure 117/69 O2 Sat by Pulse 98 Oximetry Medical Decision Making - Medical Decision Making Patient is 23-year-old male presenting to emergency Department with a chief complaint of right shoulder pain. On exam patient has a positive empty can test. Unable to abduction of both 15. X-ray is unremarkable. I suspect the patient suffered a rotator cuff injury. Neurovascularly intact in bilateral extremities. Patient given Toradol in the ED. Patient given a sling and discharged with Tylenol 3 starter pack. Patient was to follow-up with orthopedics. Return parameters discussed. Case discussed with physician. 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 Alternate between Tylenol or Motrin for pain control. Apply ice compress to minimize symptoms. Return to emergency department if symptoms worsen. Is patient prescribed a controlled substance at d/c from ED?: No Referrals: None,Stated [Primary Care Provider] - 1-2 days Stephane Riddle PAC [PHYSICIAN CLOTH FINISHING RANGE BACK TENDER] - 1-2 days Time of Disposition: 18:32
--- NOTE | 2019-10-24 18:29 | XR ---
EXAMINATION TYPE: XR shoulder complete RT DATE OF EXAM: 10/24/2019 CLINICAL HISTORY: Right shoulder pain and limited range of motion after heavy lifting injury TECHNIQUE: Three views of the right shoulder are obtained. COMPARISON: None. FINDINGS: There is no acute fracture/dislocation evident in the right shoulder. The acromioclavicul ar and glenohumeral joint spaces appear within normal limits. The visualized ribs are intact and unr emarkable. IMPRESSION: There is no acute fracture or dislocation in the right shoulder.
[2019-10-24] MEDS ORDERED: ACET/COD 300 MG/30 MG STARTER PACK 6 TAB BTL PO STA (18:30)
== END 2019-10-24 19:13 | disposition home or self-care (01) ==
LOC: EC 17:33
DX: S46.001A Unspecified injury of muscle(s) and tendon(s) of the rotator cuff of right shoulder, initial encounter (principal); M25.511 Pain in right shoulder; F17.200 Nicotine dependence, unspecified, uncomplicated; Z88.1 Allergy status to other antibiotic agents; Z88.2 Allergy status to sulfonamides; X50.0XXA Overexertion from strenuous movement or load, initial encounter; Y92.69 Other specified industrial and construction area as the place of occurrence of the external cause; Y99.0 Civilian activity done for income or pay
CPT/HCPCS: 73030; 99283; J1885

== ENCOUNTER → 2019-11-06 | Outpatient (CLI) | payer OTHER ==
--- NOTE | 2019-11-06 15:54 | MR ---
EXAMINATION TYPE: MR shoulder RT wo con DATE OF EXAM: 11/06/2019 COMPARISON: None HISTORY: 24-year-old male with shoulder pain, Lifting injury TECHNIQUE: Multiplanar, multisequence imaging of the right shoulder is performed without contrast. FINDINGS: Long head biceps tendon is intact and appropriately situated along the bicipital groove. Mild tenosyn ovial fluid is noted. Subscapularis tendon is intact. AC joint is intact. Trace fluid within the subdeltoid bursa. Mild bursal sided fraying of the supraspinatal tendon. Otherwise, no discrete rotator cuff tear is se en. No rotator cuff muscle atrophy. The glenohumeral joint is intact. No significant joint effusion. No discrete labral tear given nonarthrographic technique. No paralabral cyst. No Hill-Sachs deformity or os acromiale. Red marrow is compatible with patient's young age. IMPRESSION: 1. Suggestion of mild bursal sided fraying of the supraspinatus tendon. No rotator cuff tear. 2. Some fluid along the long head biceps tendon sheath could be physiologic or could represent mild t enosynovitis.
== END | disposition home or self-care (01) ==
LOC: RADMRIMAIN 13:49
PROVIDERS: ATTEND Emergency Medicine
DX: S46.011A Strain of muscle(s) and tendon(s) of the rotator cuff of right shoulder, initial encounter (principal)

== ENCOUNTER 2020-01-23 09:35 | Emergency (ER) | payer OTHER ==
[2020-01-23] MEDS ORDERED: SODIUM CHLORIDE 0.9% 500 ML 500 ML IV STA (09:44)
--- NOTE | 2020-01-23 09:46 | ED ---
Seizure HPI - General Stated Complaint: seizure Time Seen by Provider: 01/23/20 09:37 Source: patient, family, EMS, RN notes reviewed Mode of arrival: EMS Limitations: altered mental status - History of Present Illness Initial Comments: 24-year-old male presents emergency Department with mother via EMS chief complaint of seizure. Patient had a witnessed seizure at home. Patient told mother right before that he didn't fill states that he cannot pass out mother grabbed him in from to the floor. He had no sick head injury. Patient had 4 prior seizures to this. Patient on no medications. She is unsure if he is followed up with neurologist at this time. No current medications. Patient unable right much information as he is postictal. Patient will look at you when questioned. - Related Data Home Medications Medication Instructions Recorded Confirmed Ciprofloxacin HCl [Cipro] 500 mg PO BID 04/16/19 04/16/19 Previous Rx's Medication Instructions Recorded Ibuprofen [Motrin] 600 mg PO Q8HR PRN #20 tab 05/10/19 Allergies Allergy/AdvReac Type Severity Reaction Status Date / Time ceftibuten dihydrate Allergy Rash/Hives Verified 01/23/20 09:45 [From Cedax] ciprofloxacin Allergy Unknown Verified 01/23/20 09:45 sulfamethoxazole Allergy Rash/Hives Verified 01/23/20 09:45 [From Bactrim] trimethoprim [From Bactrim] Allergy Rash/Hives Verified 01/23/20 09:45 Review of Systems ROS Statement: Those systems with pertinent positive or pertinent negative responses have been documented in the HPI. ROS Other: All systems not noted in ROS Statement are negative. Past Medical History Past Medical History: No Reported History History of Any Multi-Drug Resistant Organisms: None Reported Past Surgical History: No Surgical Hx Reported Past Psychological History: No Psychological Hx Reported Smoking Status: Current every day smoker Past Alcohol Use History: Rare Past Drug Use History: None Reported - Past Family History Mother Family Medical History: No Reported History General Exam General appearance: alert, in no apparent distress Head exam: Present: atraumatic, normocephalic, normal inspection Eye exam: Present: normal appearance, PERRL, EOMI. Absent: scleral icterus, conjunctival injection, periorbital swelling ENT exam: Present: normal exam, normal oropharynx (No tongue injury noted), mucous membranes moist Neck exam: Present: normal inspection, full ROM. Absent: tenderness, meningismus, lymphadenopathy Respiratory exam: Present: normal lung sounds bilaterally. Absent: respiratory distress, wheezes, rales, rhonchi, stridor Cardiovascular Exam: Present: regular rate, normal rhythm, normal heart sounds. Absent: systolic murmur, diastolic murmur, rubs, gallop, clicks GI/Abdominal exam: Present: soft, normal bowel sounds. Absent: distended, tenderness, guarding, rebound, rigid Extremities exam: Present: normal inspection, full ROM, normal capillary refill. Absent: tenderness, pedal edema, joint swelling, calf tenderness Neurological exam: Present: alert Skin exam: Present: warm, dry, intact, normal color. Absent: rash Course Vital Signs 01/23/20 01/23/20 01/23/20 09:37 09:56 10:35 Temperature 97.9 F Pulse Rate 61 64 Respiratory 18 16 Rate Blood Pressure 119/85 100/75 O2 Sat by Pulse 100 100 Oximetry 01/23/20 11:30 Temperature Pulse Rate 58 L Respiratory 16 Rate Blood Pressure 93/59 O2 Sat by Pulse 100 Oximetry Medical Decision Making - Medical Decision Making 24-year-old male present emergency department via EMS for seizure. Labs unremarkable. Patient has had multiple seizures in the past. Patient advised follow-up with neurologist as he's been instructed in the past. He is advised that he cannot drive for 6 months and until cleared by neurology. Return parameters were discussed. - Lab Data Result diagrams: 01/23/20 09:50 01/23/20 09:50 Lab Results 01/23/20 01/23/20 01/23/20 Range/Units 09:50 09:50 11:20 WBC 7.0 (3.8-10.6) k/uL RBC 4.74 (4.30-5.90) m/uL Hgb 14.5 (13.0-17.5) gm/dL Hct 43.9 (39.0-53.0) % MCV 92.6 (80.0-100.0) fL MCH 30.5 (25.0-35.0) pg MCHC 33.0 (31.0-37.0) g/dL RDW 12.5 (11.5-15.5) % Plt Count 200 (150-450) k/uL Neutrophils % 61 % Lymphocytes % 28 % Monocytes % 7 % Eosinophils % 3 % Basophils % 0 % Neutrophils # 4.2 (1.3-7.7) k/uL Lymphocytes # 2.0 (1.0-4.8) k/uL Monocytes # 0.5 (0-1.0) k/uL Eosinophils # 0.2 (0-0.7) k/uL Basophils # 0.0 (0-0.2) k/uL Sodium 139 (137-145) mmol/L Potassium 3.8 (3.5-5.1) mmol/L Chloride 106 (98-107) mmol/L Carbon Dioxide 27 (22-30) mmol/L Anion Gap 6 mmol/L BUN 12 (9-20) mg/dL Creatinine 0.90 (0.66-1.25) mg/dL Est GFR (CKD-EPI)AfAm >90 (>60 ml/min/1.73 sqM) Est GFR (CKD-EPI)NonAf >90 (>60 ml/min/1.73 sqM) Glucose 100 H (74-99) mg/dL Calcium 9.2 (8.4-10.2) mg/dL Total Bilirubin 1.1 (0.2-1.3) mg/dL AST 18 (17-59) U/L ALT 12 (4-49) U/L Alkaline Phosphatase 56 (38-126) U/L Total Protein 6.6 (6.3-8.2) g/dL Albumin 4.2 (3.5-5.0) g/dL Urine Opiates Screen Not Detected (NotDetected) Ur Oxycodone Screen Not Detected (NotDetected) Urine Methadone Screen Not Detected (NotDetected) Ur Propoxyphene Screen Not Detected (NotDetected) Ur Barbiturates Screen Not Detected (NotDetected) U Tricyclic Antidepress Not Detected (NotDetected) Ur Phencyclidine Scrn Not Detected (NotDetected) Ur Amphetamines Screen Not Detected (NotDetected) U Methamphetamines Scrn Not Detected (NotDetected) U Benzodiazepines Scrn Not Detected (NotDetected) Urine Cocaine Screen Not Detected (NotDetected) U Marijuana (THC) Screen Not Detected (NotDetected) - EKG Data -: EKG Interpreted by Me EKG Comments: EKG performed and: 48 sinus bradycardia, rate of 59 NC 138 QRS 106 QT/QTC 404/399 Disposition Clinical Impression: Generalized seizure Disposition: HOME SELF-CARE Condition: Stable Instructions (If sedation given, give patient instructions): Recurrent Seizures in Adults (ED) Additional Instructions: Please return to the Emergency Department if symptoms worsen or any other concerns. Is patient prescribed a controlled substance at d/c from ED?: No Referrals: None,Stated [Primary Care Provider] - 1-2 days Mynor Leija DO [STAFF PHYSICIAN] - 1-2 days Alon Stephen MD [REFERRING] - 1-2 days Time of Disposition: 11:59
[2020-01-23 09:58] VITALS: TEMP 97.9
[2020-01-23 10:17] LABS: Basophils % (A) 0 %; Eosinophils # (A) 0.2 k/uL (0-0.7); Eosinophils % (A) 3 %; HCT 43.9 % (39.0-53.0); HGB 14.5 gm/dL (13.0-17.5); Lymphocytes % (A) 28 %; MCH 30.5 pg (25.0-35.0); MCV 92.6 fL (80.0-100.0); Mean Platelet Volume 7.4; Monocytes # (A) 0.5 k/uL (0-1.0); Monocytes % (A) 7 %; Neutrophils # (A) 4.2 k/uL (1.3-7.7); Neutrophils % (A) 61 %; Platelet Count 200 k/uL (150-450); RBC 4.74 m/uL (4.30-5.90); RDW 12.5 % (11.5-15.5)
[2020-01-23 10:28] LABS: ALT 12 U/L (4-49); AST 18 U/L (17-59); African American GFR (CKD) >90 (>60 ml/min/1.73 sqM); Albumin 4.2 g/dL (3.5-5.0); Alkaline Phosphatase 56 U/L (38-126); Anion Gap 6 mmol/L; Blood Urea Nitrogen 12 mg/dL (9-20); Calcium 9.2 mg/dL (8.4-10.2); Carbon Dioxide 27 mmol/L (22-30); Chloride 106 mmol/L (98-107); Glucose 100 mg/dL (74-99); Non-African American GFR(CKD) >90 (>60 ml/min/1.73 sqM); Potassium 3.8 mmol/L (3.5-5.1); Sodium 139 mmol/L (137-145); Total Bilirubin 1.1 mg/dL (0.2-1.3); Total Protein 6.6 g/dL (6.3-8.2)
[2020-01-23 10:36] VITALS: RESP 16
[2020-01-23 11:57] LABS: Amphetamine Screen,Urine Not Detected (NotDetected); Barbiturate Screen,Urine Not Detected (NotDetected); Benzodiazepines Screen,Urine Not Detected (NotDetected); Cocaine Screen,Urine Not Detected (NotDetected); Methadone Screen, Urine Not Detected (NotDetected); Opiate Screen,Urine Not Detected (NotDetected); Oxycodone Screen, Urine Not Detected (NotDetected); Phencyclidine Screen,Urine Not Detected (NotDetected); Tricyclic Antidepressant,Urine Not Detected (NotDetected); Urn Cannabinoid Scrn Not Detected (NotDetected)
[2020-01-23 12:21] VITALS: BP 97/58; PULSE 71
== END 2020-01-23 12:19 | disposition home or self-care (01) ==
LOC: EC 09:35
DX: R56.9 Unspecified convulsions (principal); F17.200 Nicotine dependence, unspecified, uncomplicated; Z88.2 Allergy status to sulfonamides
CPT/HCPCS: 36415; 80053; 80306; 85025; 93005; 99284

== ENCOUNTER → 2020-03-30 | Outpatient (CLI) | payer OTHER ==
[2020-03-30 17:46] LABS: African American GFR (CKD) 107.6 (60.0-200.0); Albumin 4.8 g/dL (3.80-4.90); Albumin/Globulin Ratio 2.4 (1.60-3.17); Anion Gap 9.1 mmol/L (4.00-12.00); BUN/Creat Ratio 13.64 Ratio (12.00-20.00); Calcium 9.7 mg/dL (8.7-10.3); Carbon Dioxide 25.9 mmol/L (21.6-31.8); Non-African American GFR(CKD) 92.8 (60.0-200.0); Potassium 4.1 mmol/L (3.5-5.5); Total Protein 6.8 g/dL (6.2-8.2)
[2020-03-30 17:54] LABS: T4, Free (Free Thyroxine) 1.1 ng/dL (0.80-1.80)
== END | disposition home or self-care (01) ==
LOC: LABWHC1 10:14
PROVIDERS: ATTEND Nurse Practitioner Family
DX: E55.9 Vitamin D deficiency, unspecified (principal)
CPT/HCPCS: 36415; 80053; 82306; 82607; 84207; 84439; 84443; 84481

== ENCOUNTER → 2020-11-03 | Outpatient (CLI) | payer OTHER ==
[2020-11-04 05:40] LABS: HCT 46.3 % (39.6-50.0); HGB 15.5 g/dL (13.0-17.0); MCH 30.6 pg (27.0-32.0); MCHC 33.5 g/dL (32.0-37.0); MCV 91.3 fL (80.0-97.0); Mean Platelet Volume 10.5 fL (9.5-12.2); Platelet Count 237 X 10*3/uL (140-440); RBC 5.07 X 10*6/uL (4.40-5.60); RDW 11.9 % (11.5-14.5); WBC 8.33 X 10*3/uL (4.50-10.00)
[2020-11-04 05:44] LABS: Hemoglobin A1C 4.4 % (4.0-6.0)
[2020-11-04 05:46] LABS: African American GFR (CKD) 106.8 (60.0-200.0); Albumin 4.8 g/dL (3.80-4.90); Albumin/Globulin Ratio 2.67 (1.60-3.17); Chol/HDL Ratio 2.71; Globulin 1.8 g/dL (1.6-3.3); LDL Cholesterol,Calculated 71.6 mg/dL (0.0-131.0); Non-African American GFR(CKD) 92.2 (60.0-200.0); Total Bilirubin 1.5 mg/dL (0.2-1.2); Total Protein 6.6 g/dL (6.2-8.2); VLDL Calculation 15.4 mg/dL (5.00-40.00)
== END | disposition home or self-care (01) ==
LOC: LABWHC1 15:49
PROVIDERS: ATTEND Family Medicine
DX: B89 Unspecified parasitic disease (principal); I10 Essential (primary) hypertension; Z79.899 Other long term (current) drug therapy
CPT/HCPCS: 36415; 80053; 80061; 82306; 82607; 83036; 84443; 85027

== ENCOUNTER → 2021-07-26 | Outpatient (CLI) | payer OTHER ==
[2021-07-26 11:33] LABS: Basophils # (A) 0.01 X 10*3/uL (0.00-0.10); Basophils % (A) 0.2 %; Eosinophils # (A) 0.11 X 10*3/uL (0.04-0.35); Eosinophils % (A) 2.3 %; HCT 43.7 % (39.6-50.0); HGB 14.8 g/dL (13.0-17.0); Lymphocytes # (A) 1.57 X 10*3/uL (0.90-5.00); MCH 30.5 pg (27.0-32.0); MCHC 33.9 g/dL (32.0-37.0); MCV 90.1 fL (80.0-97.0); Monocytes # (A) 0.57 X 10*3/uL (0.20-1.00); Neutrophils # (A) 2.48 X 10*3/uL (1.80-7.70); Neutrophils % (A) 52.1 %; Platelet Count 254 X 10*3/uL (140-440); RBC 4.85 X 10*6/uL (4.40-5.60); RDW 12.2 % (11.5-14.5); WBC 4.76 X 10*3/uL (4.50-10.00)
[2021-07-26 12:00] LABS: Glucose 2 Hour 91 mg/dL
[2021-07-26 13:06] LABS: African American GFR (CKD) 111.7 (60.0-200.0); Albumin 4.6 g/dL (3.8-4.9); Albumin/Globulin Ratio 2.56 (1.60-3.17); Anion Gap 9.1 mmol/L (10.00-18.00); BUN/Creat Ratio 11.13 Ratio (12.00-20.00); Blood Urea Nitrogen 11.8 mg/dL (9.0-27.0); Calcium 9.4 mg/dL (8.7-10.3); Carbon Dioxide 27.4 mmol/L (20.0-27.5); Globulin 1.8 g/dL (1.6-3.3); Non-African American GFR(CKD) 96.4 (60.0-200.0); Potassium 3.6 mmol/L (3.5-5.5); Total Bilirubin 1.3 mg/dL (0.30-1.20); Total Protein 6.4 g/dL (6.2-8.2)
== END | disposition home or self-care (01) ==
LOC: LABWHC1 07:28
PROVIDERS: ATTEND Family Medicine
DX: I10 Essential (primary) hypertension (principal); B89 Unspecified parasitic disease; Z79.899 Other long term (current) drug therapy
CPT/HCPCS: 36415; 80053; 82306; 82947; 82950; 83036; 84443; 85025

== ENCOUNTER → 2021-09-07 | Outpatient (CLI) | payer OTHER | END | disposition home or self-care (01) | LOC: LABWHC1 13:47 | PROVIDERS: ATTEND Psychiatry & Neurology Neurology | DX: Z53.9 Procedure and treatment not carried out, unspecified reason (principal) ==

== ENCOUNTER → 2021-09-08 | Outpatient (CLI) | payer OTHER | END | disposition home or self-care (01) | LOC: LABWHC1 11:09 | PROVIDERS: ATTEND Nurse Practitioner Family | DX: Z51.81 Encounter for therapeutic drug level monitoring (principal) | CPT/HCPCS: 36415; 80175 ==

== ENCOUNTER → 2023-04-03 | Outpatient (CLI) | payer OTHER ==
[2023-04-03 20:04] LABS: ALT 16 U/L (10-49); AST 19 U/L (14-35); Albumin 4.6 d/dL (3.8-4.9); Albumin/Globulin Ratio 2.56 Ratio (1.60-3.17); Alkaline Phosphatase 61 U/L (41-126); BUN/Creat Ratio 11.09 Ratio (12.00-20.00); Blood Urea Nitrogen 12.2 mg/dL (9.0-27.0); Calcium 9.5 mg/dL (8.7-10.3); Carbon Dioxide 27.2 mmol/L (21.6-31.8); Chloride 108 mmol/L (96-109); Globulin 1.8 d/dL (1.6-3.3); Glucose 91 mg/dL (70-110); Potassium 4.2 mmol/L (3.5-5.5); Sodium 144 mmol/L (135-145); Total Bilirubin 1.3 mg/dL (0.3-1.2); Total Protein 6.4 d/dL (6.2-8.2)
== END | disposition home or self-care (01) ==
LOC: LABWHC1 15:10
PROVIDERS: ATTEND Psychiatry & Neurology Neurology
DX: Z01.812 Encounter for preprocedural laboratory examination (principal)
CPT/HCPCS: 36415; 80053

== ENCOUNTER 2023-06-01 21:35 | Emergency (ER) | payer MEDICARE, OTHER ==
[2023-06-01] MEDS ORDERED: ACETAMINOPHEN TAB 325 MG TAB PO STA (22:11)
--- NOTE | 2023-06-01 22:13 | ED ---
General Adult HPI - General Chief complaint: Fever Stated complaint: fever body aches Time Seen by Provider: 06/01/23 21:56 Source: patient, RN notes reviewed Mode of arrival: ambulatory Limitations: no limitations - History of Present Illness Initial comments: 27-year-old male presents to the emergency department for chief complaint of fever, body aches, sore throat 2 days. He reports that he has been taking Tylenol and Motrin for his fevers. He states that he gets temporary relief in his fever but it comes back. He states that this is not helping his body aches. He states that everybody his family has similar symptoms. - Related Data Home Medications Medication Instructions Recorded Confirmed Hydrocortisone Cream 1 applic TOPICAL BID 09/23/21 09/23/21 [Hydrocortisone 2.5% Cream] OXcarbazepine 600 mg PO BID 09/23/21 09/23/21 Valtoco 10mg Nasal [place] 1 spray NASAL DIRECTED PRN 09/23/21 09/23/21 lamoTRIgine 200 mg PO BID 09/23/21 09/23/21 Allergies Allergy/AdvReac Type Severity Reaction Status Date / Time ceftibuten dihydrate Allergy Rash/Hives Verified 06/01/23 21:53 [From Cedax] ciprofloxacin Allergy Unknown Verified 06/01/23 21:53 sulfamethoxazole Allergy Rash/Hives Verified 06/01/23 21:53 [From Bactrim] trimethoprim [From Bactrim] Allergy Rash/Hives Verified 06/01/23 21:53 Review of Systems ROS Statement: Those systems with pertinent positive or pertinent negative responses have been documented in the HPI. ROS Other: All systems not noted in ROS Statement are negative. Past Medical History Past Medical History: Seizure Disorder History of Any Multi-Drug Resistant Organisms: None Reported Past Surgical History: No Surgical Hx Reported Past Psychological History: Anxiety, Depression Smoking Status: Current every day smoker, Vaper Past Alcohol Use History: Rare Past Drug Use History: None Reported - Past Family History Mother Family Medical History: No Reported History General Exam Limitations: no limitations General appearance: alert, in no apparent distress Head exam: Present: atraumatic, normocephalic, normal inspection Eye exam: Present: normal appearance, PERRL, EOMI. Absent: scleral icterus, conjunctival injection, periorbital swelling ENT exam: Present: normal exam, mucous membranes moist. Absent: TM's normal bilaterally, normal external ear exam (Cerumen obstructing visualization of TM) Neck exam: Present: normal inspection, full ROM. Absent: tenderness, meningismus, lymphadenopathy Respiratory exam: Present: normal lung sounds bilaterally. Absent: respiratory distress, wheezes, rales, rhonchi, stridor Cardiovascular Exam: Present: regular rate, normal rhythm, normal heart sounds. Absent: systolic murmur, diastolic murmur, rubs, gallop, clicks Back exam: Present: normal inspection Neurological exam: Present: alert, oriented X3 Psychiatric exam: Present: normal affect, normal mood Skin exam: Present: warm, dry, intact, normal color. Absent: rash Course Vital Signs 06/01/23 21:53 Temperature 99.6 F Pulse Rate 90 Respiratory 18 Rate Blood Pressure 114/88 O2 Sat by Pulse 98 Oximetry Medical Decision Making - Medical Decision Making Was pt. sent in by a medical professional or institution (, PA, LANGUAGE ASSISTANT, urgent care, hospital, or [facility]...) When possible be specific @ -No Did you speak to anyone other than the patient for history (EMS, parent, family, police, friend...)? What history was obtained from this source @ -No Did you review nursing and triage notes (agree or disagree)? Why? @ -I reviewed and agree with nursing and triage notes Were old charts reviewed (outside hosp., previous admission, EMS record, old EKG, old radiological studies, urgent care reports/EKG's, [facility] records)? Report findings @ -No old charts were reviewed Differential Diagnosis (chest pain, altered mental status, abdominal pain women, abdominal pain men, vaginal bleeding, weakness, fever, dyspnea, syncope, headache, dizziness, GI bleed, back pain, seizure, CVA, palpatations, mental health, musculoskeletal)? @ -Differential Fever: Pneumonia, viral URI, endocarditis, myocarditis, pericarditis, otitis, sinusitis, peritonsillar Abscess, retropharyngeal Abscess, epiglottitis, peritonitis, appendicitis, Sara cystitis, diverticulitis, hepatitis, colitis, UTI, PID, TOA, pyelonephritis, prostatitis, epididymitis, meningitis, encepha litis, pulmonary embolism, CVA, thyroid storm, pancreatitis, adrenal crisis, cavernous sinus thrombosis, this is not meant to be an all-inclusive list. EKG interpreted by me (3pts min.). @ -None X-rays interpreted by me (1pt min.). @ -Chest x-ray shows no evidence of acute process CT interpreted by me (1pt min.). @ -None done U/S interpreted by me (1pt. min.). @ -None done What testing was considered but not performed or refused? (CT, X-rays, U/S, labs)? Why? @ -None What meds were considered but not given or refused? Why? @ -None Did you discuss the management of the patient with other professionals (professionals i.e. DrElisha, PA, LANGUAGE ASSISTANT, lab, RT, psych nurse, social professionals, supply specialist, teacher, founder and chief executive officer, case reviewer)? Give summary @ -No Was smoking cessation discussed for >3mins.? @ -No Was critical care preformed (if so, how long)? @ -No Were there social determinants of health that impacted care today? How? (Homelessness, low income, unemployed, alcoholism, drug addiction, transportation, low edu. Level, literacy, decrease access to med. care, skilled nursing, rehab)? @ -No Was there de-escalation of care discussed even if they declined (Discuss DNR or withdrawal of care, Hospice)? DNR status @ -No What co-morbidities impacted this encounter? (DM, HTN, Smoking, COPD, CAD, Cancer, CVA, ARF, Chemo, Hep., AIDS, mental health diagnosis, sleep apnea, morbid obesity)? @ -None Was patient admitted / discharged? Hospital course, mention meds given and route, prescriptions, significant lab abnormalities, going to OR and other pertinent info. @ -Discharged. Patient presents emergency Department with chief complaint of fever, cough, muscle aches 2 days. This is even taking Tylenol and Motrin which improve his symptoms temporarily. Influenza, RSV negative Covid 19 positive chest x-ray shows no evidence of acute process. Patient is not having any chest pain, shortness of breath. Patient advised of findings and discharged home in stable condition. Case discussed with Dr. James. Undiagnosed new problem with uncertain prognosis? @ -No Drug Therapy requiring intensive monitoring for toxicity (Heparin, Nitro, Insulin, Cardizem)? @ -No Were any procedures done? @ -No Diagnosis/symptom? @ -Covid 19 Acute, or Chronic, or Acute on Chronic? @ -acute Uncomplicated (without systemic symptoms) or Complicated (systemic symptoms)? @ -complicated Side effects of treatment? @ -No Exacerbation, Progression, or Severe Exacerbation? @ -No Poses a threat to life or bodily function? How? (Chest pain, [place], [place], pneumonia, PE, COPD, DKA, ARF, appy, cholecystitis, CVA, Diverticulitis, Homicidal, Suicidal, threat to staff... and all critical care pts) @ -No - Lab Data Lab Results 06/01/23 06/01/23 Range/Units 22:44 22:44 Influenza Type A (PCR) Not Detected (Not Detectd) Influenza Type B (PCR) Not Detected (Not Detectd) RSV (PCR) Not Detected (Not Detectd) SARS-CoV-2 (PCR) Detected A (Not Detectd) Group A Strep (PCR) NOT DETECTED (Not Detectd) Disposition Clinical Impression: COVID-19 Disposition: HOME SELF-CARE Condition: Stable Instructions (If sedation given, give patient instructions): Fever in Adults (ED), COVID-19 (Coronavirus Disease 2019) (ED) Additional Instructions: Please self isolate for 5 days. If symptoms resolve, you should wear a mask in public for 5 days following this. Alternate Tylenol and Motrin as needed for fevers, muscle aches, and headaches. Return to the emergency department for any worsening symptoms Is patient prescribed a controlled substance at d/c from ED?: No Referrals: Waldemar Walker MD [Primary Care Provider] - 1-2 days
--- NOTE | 2023-06-01 23:30 | XR ---
EXAM: XR Chest, 2 Views CLINICAL HISTORY: ITS.REASON XR Reason: cough, fever TECHNIQUE: Frontal and lateral views of the chest. COMPARISON: No relevant prior studies available. FINDINGS: Lungs: Unremarkable. No consolidation. Pleural space: Unremarkable. No pneumothorax. Heart: Unremarkable. No cardiomegaly. Mediastinum: Unremarkable. Bones/joints: Unremarkable. IMPRESSION: Normal chest x-rays.
[2023-06-02 00:28] VITALS: BP 135/78; PULSE 69; RESP 19; TEMP 99
== END 2023-06-02 00:14 | disposition home or self-care (01) ==
LOC: EC 21:35
DX: U07.1 COVID-19 (principal); F17.290 Nicotine dependence, other tobacco product, uncomplicated; Z86.59 Personal history of other mental and behavioral disorders; Z88.2 Allergy status to sulfonamides; Z88.8 Allergy status to other drugs, medicaments and biological substances
CPT/HCPCS: 71046; 87636; 87651; 99283

== ENCOUNTER 2023-08-26 12:29 | Emergency (ER) | payer MEDICARE, OTHER ==
[2023-08-26 12:48] VITALS: TEMP 98
--- NOTE | 2023-08-26 13:22 | ED ---
Skin/Abscess/FB HPI - General Chief complaint: Skin/Abscess/Foreign Body Stated complaint: Lump on L ear Time Seen by Provider: 08/26/23 12:57 Source: patient, RN notes reviewed Mode of arrival: ambulatory Limitations: no limitations - History of Present Illness Initial comments: This is a 27-year-old male who presents to the emergency department for a lump on the back of his left ear. States that this has been there for about a month. It is only painful when he presses on it. States that he tried to squeeze it but did not get anything out of it. complaint: abscess/boil - Related Data Home Medications Medication Instructions Recorded Confirmed Hydrocortisone Cream 1 applic TOPICAL BID 09/23/21 09/23/21 [Hydrocortisone 2.5% Cream] OXcarbazepine 600 mg PO BID 09/23/21 09/23/21 Valtoco 10mg Nasal [place] 1 spray NASAL DIRECTED PRN 09/23/21 09/23/21 lamoTRIgine 200 mg PO BID 09/23/21 09/23/21 Previous Rx's Medication Instructions Recorded clindamycin HCL 300 mg PO Q6H 7 Days #28 capsule 08/26/23 Allergies Allergy/AdvReac Type Severity Reaction Status Date / Time ceftibuten dihydrate Allergy Rash/Hives Verified 08/26/23 12:33 [From Cedax] ciprofloxacin Allergy Unknown Verified 08/26/23 12:33 sulfamethoxazole Allergy Rash/Hives Verified 08/26/23 12:33 [From Bactrim] trimethoprim [From Bactrim] Allergy Rash/Hives Verified 08/26/23 12:33 Review of Systems ROS Statement: Those systems with pertinent positive or pertinent negative responses have been documented in the HPI. ROS Other: All systems not noted in ROS Statement are negative. Past Medical History Past Medical History: Seizure Disorder History of Any Multi-Drug Resistant Organisms: None Reported Past Surgical History: No Surgical Hx Reported Past Psychological History: Anxiety, Depression Smoking Status: Current every day smoker, Vaper Past Alcohol Use History: Rare Past Drug Use History: None Reported - Past Family History Mother Family Medical History: No Reported History General Exam Limitations: no limitations General appearance: alert, in no apparent distress Head exam: Present: atraumatic, normocephalic, normal inspection ENT exam: Present: other (Small cyst on the back of the left ear. Visible purulent material.) Respiratory exam: Present: normal lung sounds bilaterally. Absent: respiratory distress, wheezes, rales, rhonchi, stridor Cardiovascular Exam: Present: regular rate, normal rhythm, normal heart sounds. Absent: systolic murmur, diastolic murmur, rubs, gallop, clicks Neurological exam: Present: alert, oriented X3, CN II-XII intact Psychiatric exam: Present: normal affect, normal mood Skin exam: Present: warm, dry, intact, normal color. Absent: rash Course Vital Signs 08/26/23 08/26/23 12:31 13:29 Temperature 98 F Pulse Rate 78 69 Respiratory 16 18 Rate Blood Pressure 113/77 116/88 O2 Sat by Pulse 99 97 Oximetry Procedures - Incision & Drainage Consent Obtained: verbal consent Indication: Abscess Size (cm): 1 Medical Decision Making - Medical Decision Making This is a 27 year old male who presents to the emergency department for a cyst on his left ear. Was pt. sent in by a medical professional or institution? @ -No Did you speak to anyone other than the patient for history? @ -No Did you review nursing and triage notes? @ -Yes, and I agree, it is accurate with regards to the patient's symptoms. Were old charts reviewed? @ -No Differential Diagnosis? @ -Differential Ear Lump: Abscess, keloid, tumor, this is not meant to be an all-inclusive list. EKG interpreted by me (3pts min.)? @ -Not obtained X-rays interpreted by me (1pt min.)? @ -Not obtained CT interpreted by me (1pt min.)? @ -Not obtained U/S interpreted by me (1pt. min.)? @ -Not obtained What testing was considered but not performed? (CT, X-rays, U/S, labs)? Why? @ -None What meds were considered but not given? Why? @ -None Did you discuss the management of the patient with other professionals? @ -No Did you reconcile home meds? @ -No Was smoking cessation discussed for >3mins.? @ -No Was critical care preformed (if so, how long)? @ -No Were there social determinants of health that impacted care today? How? (Homelessness, low income, unemployed, alcoholism, drug addiction, transportation, low edu. Level, literacy, decrease access to med. care, [facility], rehab)? @ -No Was there de-escalation of care discussed even if they declined? (Discuss DNR or withdrawal of care, Hospice)? @ -No What co-morbidities impacted this encounter? (DM, HTN, Smoking, COPD, CAD, Cancer, CVA, Hep., AIDS, mental health diagnosis, sleep apnea, morbid obesity)? @ -None Was patient admitted / discharged? @ -Discharged. Physical examination consistent with a small abscess. The head of this was poked with a 30 gauge needle and a large amount of purulent material was expressed. Rx for Clindamycin provided. Advised warm compresses and follow up with his PCP. Undiagnosed new problem with uncertain prognosis? @ -None Drug Therapy requiring intensive monitoring for toxicity (Heparin, Nitro, Insulin, Cardizem)? @ -None Were any procedures done? @ -Incision and drainage of abscess Diagnosis/symptom? @ -Abscess Acute, or Chronic, or Acute on Chronic? @ -Acute Uncomplicated (without systemic symptoms) or Complicated (systemic symptoms)? @ -Uncomplicated Side effects of treatment? @ -None Exacerbation, Progression, or Severe Exacerbation] @ -Not applicable Poses a threat to life or bodily function? @ -No Return precautions reviewed in depth, the patient is instructed to return to the emergency department with any new, worsening, or concerning symptoms. Patient verbalized understanding. This case was discussed in detail with the attending ED physician, Dr. Winchester. Presentation, findings, and treatment plan discussed in detail as well. Disposition Clinical Impression: Absence of ear lobe Disposition: HOME SELF-CARE Instructions (If sedation given, give patient instructions): Abscess (ED), Abscess Incision and Drainage (DC) Additional Instructions: Return to the emergency department with any new, worsening, or concerning symptoms. Take the antiobiotic as prescribed for 7 days. Apply warm compresses and continue to express drainage from the ear. Alternate with Ibuprofen and Tylenol as needed for pain relief. Follow up with your primary care provider in 1-2 days. Prescriptions: clindamycin HCL 300 mg PO Q6H 7 Days #28 capsule Is patient prescribed a controlled substance at d/c from ED?: No Referrals: Waldemar Walker MD [Primary Care Provider] - 1-2 days Time of Disposition: 13:30
[2023-08-26 13:36] VITALS: BP 116/88; PULSE 69; RESP 18
== END 2023-08-26 13:30 | disposition home or self-care (01) ==
LOC: EC 12:29
DX: Q17.8 Other specified congenital malformations of ear (principal); F17.290 Nicotine dependence, other tobacco product, uncomplicated; Z88.2 Allergy status to sulfonamides; Z88.8 Allergy status to other drugs, medicaments and biological substances
CPT/HCPCS: 10060; 99282

== ENCOUNTER 2023-10-25 15:40 | Emergency (ER) | payer MEDICARE, OTHER ==
[2023-10-25 16:03] VITALS: RESP 18
--- NOTE | 2023-10-25 17:02 | XR ---
EXAMINATION TYPE: XR chest 2V DATE OF EXAM: 10/25/2023 4:47 PM CLINICAL INDICATION:Male, 27 years old with history of Cough/pain; [facility] COMPARISON: Chest radiographs from 06/01/2023 TECHNIQUE: XR chest 2V Frontal and lateral views of the chest. FINDINGS: Lungs/Pleura: There is no evidence of pleural effusion, focal consolidation, or pneumothorax. Pulmonary vascularity: Unremarkable. Heart/mediastinum: Cardiomediastinal silhouette is unremarkable. Musculoskeletal: No acute osseous pathology. IMPRESSION: No acute cardiopulmonary disease/process.
--- NOTE | 2023-10-25 18:12 | ED ---
General Adult HPI - General Chief complaint: Recheck/Abnormal Lab/Rx Stated complaint: Sore Throat,Bodyaches Time Seen by Provider: 10/25/23 15:45 Source: patient Mode of arrival: ambulatory Limitations: no limitations - History of Present Illness Initial comments: 27-year-old male presents to the emergency department reporting body aches, sore throat and cough. States that his symptoms have been going on for several days. He has taken a home COVID test which was negative. He is currently not taking anything for his symptoms. Denies any sick contacts. He denies any chest pain or difficulty breathing. No history of underlying lung conditions. He denies nausea or vomiting. No diarrhea. Denies any abdominal pain. He is concerned that he has smokers long as he recently quit smoking. No other alleviating, precipitating or modifying factors - Related Data Home Medications Medication Instructions Recorded Confirmed Hydrocortisone Cream 1 applic TOPICAL BID 09/23/21 09/23/21 [Hydrocortisone 2.5% Cream] OXcarbazepine 600 mg PO BID 09/23/21 09/23/21 Valtoco 10mg Nasal [place] 1 spray NASAL DIRECTED PRN 09/23/21 09/23/21 lamoTRIgine 200 mg PO BID 09/23/21 09/23/21 Previous Rx's Medication Instructions Recorded clindamycin HCL 300 mg PO Q6H 7 Days #28 capsule 08/26/23 guaiFENesin [Mucinex] 1,200 mg PO BID #30 tab 10/25/23 predniSONE [Deltasone] 20 mg PO BID #10 tab 10/25/23 Allergies Allergy/AdvReac Type Severity Reaction Status Date / Time ceftibuten dihydrate Allergy Rash/Hives Verified 10/25/23 15:44 [From Cedax] ciprofloxacin Allergy Unknown Verified 10/25/23 15:44 sulfamethoxazole Allergy Rash/Hives Verified 10/25/23 15:44 [From Bactrim] trimethoprim [From Bactrim] Allergy Rash/Hives Verified 10/25/23 15:44 Review of Systems ROS Statement: Those systems with pertinent positive or pertinent negative responses have been documented in the HPI. ROS Other: All systems not noted in ROS Statement are negative. Past Medical History Past Medical History: Seizure Disorder History of Any Multi-Drug Resistant Organisms: None Reported Past Surgical History: No Surgical Hx Reported Past Psychological History: Anxiety, Depression Smoking Status: Former smoker Past Alcohol Use History: Rare Past Drug Use History: None Reported - Past Family History Mother Family Medical History: No Reported History General Exam Limitations: no limitations General appearance: alert, in no apparent distress Head exam: Present: atraumatic, normocephalic, normal inspection Eye exam: Present: normal appearance, PERRL, EOMI. Absent: scleral icterus, conjunctival injection, periorbital swelling ENT exam: Present: normal exam, mucous membranes moist Neck exam: Present: normal inspection. Absent: tenderness, meningismus, lymphadenopathy Respiratory exam: Present: normal lung sounds bilaterally. Absent: respiratory distress, wheezes, rales, rhonchi, stridor Cardiovascular Exam: Present: regular rate, normal rhythm, normal heart sounds. Absent: systolic murmur, diastolic murmur, rubs, gallop, clicks GI/Abdominal exam: Present: soft, normal bowel sounds. Absent: distended, tenderness, guarding, rebound, rigid Extremities exam: Present: normal inspection, full ROM, normal capillary refill. Absent: tenderness, pedal edema, joint swelling, calf tenderness Back exam: Present: normal inspection Neurological exam: Present: alert, oriented X3, CN II-XII intact Psychiatric exam: Present: normal affect, normal mood Skin exam: Present: warm, dry, intact, normal color. Absent: rash Course Vital Signs 10/25/23 10/25/23 15:41 18:22 Temperature 97.6 F 98.4 F Pulse Rate 85 86 Respiratory 18 18 Rate Blood Pressure 119/79 136/84 O2 Sat by Pulse 99 99 Oximetry Medical Decision Making - Medical Decision Making Was pt. sent in by a medical professional or institution (, PA, SLITTER CUT OFF OPERATOR, urgent care, hospital, or [facility]...) When possible be specific @ -No Did you speak to anyone other than the patient for history (EMS, parent, family, police, friend...)? What history was obtained from this source @ -No Did you review nursing and triage notes (agree or disagree)? Why? @ -I reviewed and agree with nursing and triage notes Were old charts reviewed (outside hosp., previous admission, EMS record, old EKG, old radiological studies, urgent care reports/EKG's, [facility] records)? Report findings @ -No old charts were reviewed Differential Diagnosis (chest pain, altered mental status, abdominal pain women, abdominal pain men, vaginal bleeding, weakness, fever, dyspnea, syncope, headache, dizziness, GI bleed, back pain, seizure, CVA, palpatations, mental health, musculoskeletal)? @ -COVID, influenza, strep pharyngitis, bronchitis, sinusitis EKG interpreted by me (3pts min.). @ -Not done X-rays interpreted by me (1pt min.). @ -Yes and demonstrates no acute process CT interpreted by me (1pt min.). @ -None done U/S interpreted by me (1pt. min.). @ -None done What testing was considered but not performed or refused? (CT, X-rays, U/S, labs)? Why? @ -None What meds were considered but not given or refused? Why? @ -None Did you discuss the management of the patient with other professionals (professionals i.e. , PA, SLITTER CUT OFF OPERATOR, lab, RT, psych nurse, social work lecturer, monotypist, teacher, assault amphibious vehicle officer, child support case officer)? Give summary @ -No Was smoking cessation discussed for >3mins.? @ -No Was critical care preformed (if so, how long)? @ -No Were there social determinants of health that impacted care today? How? (Homelessness, low income, unemployed, alcoholism, drug addiction, transportation, low edu. Level, literacy, decrease access to med. care, ch[facility], rehab)? @ -No Was there de-escalation of care discussed even if they declined (Discuss DNR or withdrawal of care, Hospice)? DNR status @ -No What co-morbidities impacted this encounter? (DM, HTN, Smoking, COPD, CAD, Cancer, CVA, ARF, Chemo, Hep., AIDS, mental health diagnosis, sleep apnea, morbid obesity)? @ -None Was patient admitted / discharged? Hospital course, mention meds given and route, prescriptions, significant lab abnormalities, going to OR and other pertinent info. @ -Upon arrival patient was placed into room 30. Thorough history and physical exam was performed. Patient is swabbed for influenza, COVID and RSV. Chest x- ray was performed. Results are discussed with patient. As he does have persistent symptoms I did recommend treatment with steroids for the patient was agreeable. I also recommended treatment with Mucinex. Patient was offered an inhaler and Tessalon Perles however he refused these. Patient be discharged home. Instructed to take medications as directed on a full stomach. Follow-up with his doctor for reevaluation return for any new or worsening symptoms. Patient agreeable to plan was discharged in stable condition Undiagnosed new problem with uncertain prognosis? @ -Yes Drug Therapy requiring intensive monitoring for toxicity (Heparin, Nitro, Insulin, Cardizem)? @ -No Were any procedures done? @ -No Diagnosis/symptom? @ -Acute bronchospasm, acute sinusitis Acute, or Chronic, or Acute on Chronic? @ -Acute Uncomplicated (without systemic symptoms) or Complicated (systemic symptoms)? @ -Complicated Side effects of treatment? @ -No Exacerbation, Progression, or Severe Exacerbation? @ -No Poses a threat to life or bodily function? How? (Chest pain, [place], [place], pneumonia, PE, COPD, DKA, ARF, appy, cholecystitis, CVA, Diverticulitis, Homicidal, Ailyn cidal, threat to staff... and all critical care pts) @ -No - Lab Data Lab Results 10/25/23 Range/Units 16:39 Influenza Type A (PCR) Not Detected (Not Detectd) Influenza Type B (PCR) Not Detected (Not Detectd) RSV (PCR) Not Detected (Not Detectd) SARS-CoV-2 (PCR) Not Detected (Not Detectd) Disposition Clinical Impression: Cough, Acute sinusitis Disposition: ADMITTED IP TO THIS HOSP Condition: Stable Instructions (If sedation given, give patient instructions): Upper Respiratory Infection (ED) Additional Instructions: Please take the prednisone as directed. Use the Mucinex for your sinus congestion. Follow-up with your doctor and return for any new or worsening symptoms Prescriptions: predniSONE [Deltasone] 20 mg PO BID #10 tab guaiFENesin [Mucinex] 1,200 mg PO BID #30 tab Is patient prescribed a controlled substance at d/c from ED?: No Referrals: Waldemar Walker MD [Primary Care Provider] - 1-2 days Time of Disposition: 18:12
[2023-10-25] MEDS: predniSONE 20 MG TAB PO STA (18:15)
[2023-10-25 18:49] VITALS: BP 136/84; PULSE 86; TEMP 98.4
== END 2023-10-25 18:26 | disposition other institution (70) ==
LOC: EC 15:40
DX: J01.90 Acute sinusitis, unspecified (principal); Z87.891 Personal history of nicotine dependence; Z88.2 Allergy status to sulfonamides; Z88.8 Allergy status to other drugs, medicaments and biological substances; Z88.1 Allergy status to other antibiotic agents
CPT/HCPCS: 87636; 71046; 99284; J7512

== ENCOUNTER → 2023-12-30 | Outpatient (CLI) | payer MEDICARE, OTHER ==
--- NOTE | 2023-12-30 16:00 | XR ---
EXAMINATION TYPE: XR knee limited LT DATE OF EXAM: 12/30/2023 COMPARISON: None HISTORY: Pain in left knee TECHNIQUE: 2 view left knee FINDINGS: No acute fracture or dislocation is evident. Soft tissues appear normal. No significant emmanuel nt effusion is evident. IMPRESSION: 1. No acute osseous abnormality left knee
== END | disposition home or self-care (01) ==
LOC: RADXRMAIN 15:29
PROVIDERS: ATTEND Family Medicine
DX: M25.562 Pain in left knee (principal)

== ENCOUNTER 2024-06-16 14:55 | Emergency (ER) | payer MEDICARE, OTHER ==
--- NOTE | 2024-06-16 15:54 | XR ---
EXAMINATION TYPE: XR chest 2V DATE OF EXAM: 06/16/2024 3:44 PM COMPARISON: Chest radiographs from 10/25/2023 CLINICAL INDICATION: Male, 28 years old with history of Cough; TECHNIQUE: XR chest 2V Frontal and lateral views of the chest. FINDINGS: Lungs/Pleura: There is no evidence of pleural effusion, focal consolidation, or pneumothorax. Pulmonary vascularity: Unremarkable. Heart/mediastinum: Cardiomediastinal silhouette is unremarkable. Musculoskeletal: No acute osseous pathology. IMPRESSION: No acute cardiopulmonary disease/process. [facility] Jacob Maxwell, , 06/16/2024 3:51 PM
--- NOTE | 2024-06-16 16:17 | ED ---
URI HPI - General Chief Complaint: Upper Respiratory Infection Stated Complaint: fever and cough Time Seen by Provider: 06/16/24 15:13 Source: patient, RN notes reviewed Mode of arrival: ambulatory Limitations: no limitations - History of Present Illness Initial Comments: This is a 28-year-old male presenting with cough x 3 weeks. Patient states cough has been recurring with yellow sputum production. 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 Also endorses fever, chills, fatigue, body aches, nasal congestion. Endorses use of day/NyQuil and Mucinex with minimal relief. Patient denies hemoptysis, abdominal pain, N/C/D, dizziness. MD Complaint: fever, cough, rhinorrhea, nasal congestion Onset/Timin -: week(s) Associated Symptoms: fever, chills, rhinorrhea, nasal congestion, cough - Related Data Home Medications Medication Instructions Recorded Confirmed Hydrocortisone Cream 1 applic TOPICAL BID 09/23/21 09/23/21 [Hydrocortisone 2.5% Cream] OXcarbazepine 600 mg PO BID 09/23/21 09/23/21 Valtoco 10mg Nasal [place] 1 spray NASAL DIRECTED PRN 09/23/21 09/23/21 lamoTRIgine 200 mg PO BID 09/23/21 09/23/21 Previous Rx's Medication Instructions Recorded clindamycin HCL 300 mg PO Q6H 7 Days #28 capsule 08/26/23 guaiFENesin [Mucinex] 1,200 mg PO BID #30 tab 10/25/23 predniSONE [Deltasone] 20 mg PO BID #10 tab 10/25/23 Azithromycin [Zithromax Z Pack] 1 tab PO DIRECTED 4 Days #4 tab 06/16/24 Allergies Allergy/AdvReac Type Severity Reaction Status Date / Time ceftibuten dihydrate Allergy Rash/Hives Verified 06/16/24 14:57 [From Cedax] ciprofloxacin Allergy Unknown Verified 06/16/24 14:57 sulfamethoxazole Allergy Rash/Hives Verified 06/16/24 14:57 [From Bactrim] trimethoprim [From Bactrim] Allergy Rash/Hives Verified 06/16/24 14:57 Review of Systems ROS Statement: Those systems with pertinent positive or pertinent negative responses have been documented in the HPI. ROS Other: All systems not noted in ROS Statement are negative. Past Medical History Past Medical History: Seizure Disorder History of Any Multi-Drug Resistant Organisms: None Reported Past Surgical History: No Surgical Hx Reported Past Psychological History: Anxiety, Depression Smoking Status: Former smoker Past Alcohol Use History: Rare Past Drug Use History: None Reported - Past Family History Mother Family Medical History: No Reported History General Exam Limitations: no limitations General appearance: alert, in no apparent distress Head exam: Present: atraumatic, normocephalic, normal inspection Eye exam: Present: normal appearance, PERRL, EOMI. Absent: scleral icterus, conjunctival injection, periorbital swelling ENT exam: Present: normal exam, mucous membranes moist Neck exam: Present: normal inspection. Absent: tenderness, meningismus, lymphadenopathy Respiratory exam: Present: normal lung sounds bilaterally. Absent: respiratory distress, wheezes, rales, rhonchi, stridor Cardiovascular Exam: Present: regular rate, normal rhythm, normal heart sounds. Absent: systolic murmur, diastolic murmur, rubs, gallop, clicks GI/Abdominal exam: Present: soft, normal bowel sounds. Absent: distended, tenderness, guarding, rebound, rigid Extremities exam: Present: normal inspection, full ROM, normal capillary refill. Absent: tenderness, pedal edema, joint swelling, calf tenderness Back exam: Present: normal inspection Neurological exam: Present: alert, oriented X3, CN II-XII intact Psychiatric exam: Present: normal affect, normal mood Skin exam: Present: warm, dry, intact, normal color. Absent: rash Course Vital Signs 06/16/24 06/16/24 14:57 16:50 Temperature 99.3 F 99 F Pulse Rate 92 78 Respiratory 18 20 Rate Blood Pressure 116/79 111/71 O2 Sat by Pulse 98 98 Oximetry Medical Decision Making - Medical Decision Making Was pt. sent in by a medical professional or institution (, PA, BOAT CLEANING SUPERVISOR, urgent care, hospital, or chcf...) When possible be specific @ -No Did you speak to anyone other than the patient for history (EMS, parent, family, police, friend...)? What history was obtained from this source @ -No Did you review nursing and triage notes (agree or disagree)? Why? @ -I reviewed and agree with nursing and triage notes Were old charts reviewed (outside hosp., previous admission, EMS record, old EKG, old radiological studies, urgent care reports/EKG's, [facility] records)? Report findings @ -No old charts were reviewed Differential Diagnosis (chest pain, altered mental status, abdominal pain women, abdominal pain men, vaginal bleeding, weakness, fever, dyspnea, syncope, headache, dizziness, GI bleed, back pain, seizure, CVA, palpatations, mental health, musculoskeletal)? @ -Differential Dyspnea: Coronary syndrome, arrhythmia, tamponade, asthma, COPD, pulmonary embolism, pneumonia, pneumothorax, pulmonary effusion, anaphylaxis, diabetic ketoacidosis, flailed chest, pulmonary contusion, diaphragmatic rupture, anemia, neuromuscular, this is not meant to be an all-inclusive list. EKG interpreted by me (3pts min.). @ -As above X-rays interpreted by me (1pt min.). @ -Chest x-ray revealed no infiltrates, pulmonary edema or pneumothorax CT interpreted by me (1pt min.). @ -None done U/S interpreted by me (1pt. min.). @ -None done What testing was considered but not performed or refused? (CT, X-rays, U/S, labs)? Why? @ -None What meds were considered but not given or refused? Why? @ -None Did you discuss the management of the patient with other professionals (professionals i.e. , PA, BOAT CLEANING SUPERVISOR, lab, RT, psych nurse, social work lecturer, automobile rental representative, teacher, sheriff officer, disease case manager rn)? Give summary @ -No Was smoking cessation discussed for >3mins.? @ -No Was critical care preformed (if so, how long)? @ -No Were there social determinants of health that impacted care today? How? (Homelessness, low income, unemployed, alcoholism, drug addiction, transportation, low edu. Level, literacy, decrease access to med. care, [facility], rehab)? @ -No Was there de-escalation of care discussed even if they declined (Discuss DNR or withdrawal of care, Hospice)? DNR status @ -No What co-morbidities impacted this encounter? (DM, HTN, Smoking, COPD, CAD, Cancer, CVA, ARF, Chemo, Hep., AIDS, mental health diagnosis, sleep apnea, morbid obesity)? @ -None Was patient admitted / discharged? Hospital course, mention meds given and route, prescriptions, significant lab abnormalities, going to OR and other pertinent info. @ -Discharge. Chest x-ray and Cepheid test were unremarkable and negative. Due to duration of symptoms patient given initial dose of azithromycin in ER and remaining 4 days sent to patient's pharmacy. Advised to continue [id number] medication use and home remedies including tea and honey for ongoing symptoms Undiagnosed new problem with uncertain prognosis? @ -No Drug Therapy requiring intensive monitoring for toxicity (Heparin, Nitro, Insulin, Cardizem)? @ -No Were any procedures done? @ -No Diagnosis/symptom? @ -Pneumonia Acute, or Chronic, or Acute on Chronic? @ -Acute Uncomplicated (without systemic symptoms) or Complicated (systemic symptoms)? @ -Complicated Side effects of treatment? @ -No Exacerbation, Progression, or Severe Exacerbation? @ -No Poses a threat to life or bodily function? How? (Chest pain, [place], [place], pneumonia, PE, COPD, DKA, ARF, appy, cholecystitis, CVA, Diverticulitis, Homicidal, Suicidal, threat to staff... and all critical care pts) @ -No - Lab Data Lab Results 06/16/24 Range/Units 15:20 Influenza Type A (PCR) Not Detected (Not Detectd) Influenza Type B (PCR) Not Detected (Not Detectd) RSV (PCR) Not Detected (Not Detectd) SARS-CoV-2 (PCR) Not Detected (Not Detectd) Disposition Clinical Impression: Pneumonia Disposition: HOME SELF-CARE Condition: Good Instructions (If sedation given, give patient instructions): Community Acquired Pneumonia (ED) Prescriptions: Azithromycin [Zithromax Z Pack] 1 tab PO DIRECTED 4 Days #4 tab Is patient prescribed a controlled substance at d/c from ED?: No Referrals: Waldemar Walker MD [Primary Care Provider] - 1-2 days Time of Disposition: 16:17
[2024-06-16] MEDS: AZITHROMYCIN 500 MG TAB PO STA (16:46)
[2024-06-16 16:52] VITALS: BP 111/71; PULSE 78; RESP 20; TEMP 99
== END 2024-06-16 16:51 | disposition home or self-care (01) ==
LOC: EC 14:55
DX: J18.9 Pneumonia, unspecified organism (principal); Z87.891 Personal history of nicotine dependence; Z88.1 Allergy status to other antibiotic agents; Z88.2 Allergy status to sulfonamides; Z88.8 Allergy status to other drugs, medicaments and biological substances
CPT/HCPCS: 71046; 87636; 99283

== ENCOUNTER 2024-09-28 15:06 | Emergency (ER) | payer MEDICARE, OTHER ==
--- NOTE | 2024-09-28 15:50 | ED ---
Upper Extremity HPI - General Source: patient, RN notes reviewed Mode of arrival: ambulatory Limitations: no limitations - History of Present Illness MD Complaint: Injury to:: right, hand <Katherine Flores - Last Filed: 09/28/24 15:49> <Rody Martinez - Last Filed: 10/02/24 17:13> - General Chief Complaint: Extremity Injury, Upper Stated Complaint: Swollen R Hand Time Seen by Provider: 09/28/24 15:40 - History of Present Illness Initial Comments: Quick Note: This is a 28-year-old male who presents to the emergency department for right hand pain after hitting a pole. (Katherine Flores) 28-year-old male presenting with chief complaint of right hand pain and swelling after hitting a pole. States that he hit the pole out of frustration. He does have some swelling over the knuckles. He has pain with range of motion but still has full range of motion. No numbness tingling or weakness. (Rody Martinez) - Related Data Home Medications Medication Instructions Recorded Confirmed Hydrocortisone Cream 1 applic TOPICAL BID 09/23/21 09/23/21 [Hydrocortisone 2.5% Cream] OXcarbazepine 600 mg PO BID 09/23/21 09/23/21 Valtoco 10mg Nasal [place] 1 spray NASAL DIRECTED PRN 09/23/21 09/23/21 lamoTRIgine 200 mg PO BID 09/23/21 09/23/21 Previous Rx's Medication Instructions Recorded clindamycin HCL 300 mg PO Q6H 7 Days #28 capsule 08/26/23 guaiFENesin [Mucinex] 1,200 mg PO BID #30 tab 10/25/23 predniSONE [Deltasone] 20 mg PO BID #10 tab 10/25/23 Azithromycin [Zithromax Z Pack] 1 tab PO DIRECTED 4 Days #4 tab 06/16/24 Allergies Allergy/AdvReac Type Severity Reaction Status Date / Time ceftibuten dihydrate Allergy Rash/Hives Verified 06/16/24 14:57 [From Cedax] ciprofloxacin Allergy Unknown Verified 06/16/24 14:57 sulfamethoxazole Allergy Rash/Hives Verified 06/16/24 14:57 [From Bactrim] trimethoprim [From Bactrim] Allergy Rash/Hives Verified 06/16/24 14:57 Review of Systems ROS Other: All systems not noted in ROS Statement are negative. <Katherine Flores - Last Filed: 09/28/24 15:49> ROS Other: All systems not noted in ROS Statement are negative. <Rody Martinez - Last Filed: 10/02/24 17:13> ROS Statement: Those systems with pertinent positive or pertinent negative responses have been documented in the HPI. Past Medical History Past Medical History: Seizure Disorder History of Any Multi-Drug Resistant Organisms: None Reported Past Surgical History: No Surgical Hx Reported Past Psychological History: Anxiety, Depression Smoking Status: Former smoker Past Alcohol Use History: Rare Past Drug Use History: None Reported - Past Family History Mother Family Medical History: No Reported History <Katherine Flores - Last Filed: 09/28/24 15:49> General Exam Limitations: no limitations <Katherine Flores - Last Filed: 09/28/24 15:49> Limitations: no limitations General appearance: alert, in no apparent distress Head exam: Present: atraumatic, normocephalic, normal inspection Eye exam: Present: normal appearance, EOMI Neck exam: Present: normal inspection. Absent: meningismus Respiratory exam: Absent: respiratory distress Cardiovascular Exam: Present: regular rate Right Hand Wrist exam: Present: full ROM, tenderness, swelling Vascular: Absent: vascular compromise Neurological exam: Present: alert, oriented X3 Psychiatric exam: Present: normal affect, normal mood Skin exam: Present: warm, dry <Rody Martinez - Last Filed: 10/02/24 17:13> - General Exam Comments Initial Comments: Visual Physical Exam Vital signs reviewed General: Well-appearing, nontoxic, no acute distress. Head: Normocephalic, atraumatic Eyes: PERRLA, EOMI ENT: Airway patent Chest: Nonlabored breathing Skin: No visual rash, normal skin tone Neuro: Alert and oriented 3 Musculoskeletal: No gross abnormalities (Katherine Flores) Course Vital Signs 09/28/24 09/28/24 15:31 17:41 Temperature 98 F 98.8 F Pulse Rate 72 70 Respiratory 20 16 Rate Blood Pressure 147/90 140/85 O2 Sat by Pulse 98 Oximetry Medical Decision Making <Katherine Flores - Last Filed: 09/28/24 15:49> <MichelleBrayanrajesh - Last Filed: 10/02/24 17:13> - Medical Decision Making I performed the QuickNote portion of this chart. Signed Katherine Flores PA-C. (Katherine Flores) Was pt. sent in by a medical professional or institution (TAY Dupree, ORGANISATION AND METHODS ANALYST, urgent care, hospital, or retirement...) When possible be specific @ -No Did you speak to anyone other than the patient for history (EMS, parent, family, police, friend...)? What history was obtained from this source @ -No Did you review nursing and triage notes (agree or disagree)? Why? @ -I reviewed and agree with nursing and triage notes Were old charts reviewed (outside hosp., previous admission, EMS record, old EKG, old radiological studies, urgent care reports/EKG's, retirement records)? Report findings @ -No old charts were reviewed Differential Diagnosis (chest pain, altered mental status, abdominal pain women, abdominal pain men, vaginal bleeding, weakness, fever, dyspnea, syncope, headache, dizziness, GI bleed, back pain, seizure, CVA, palpatations, mental health, musculoskeletal)? @ -Differential includes fracture, dislocation, sprain, strain, not an all- inclusive list EKG interpreted by me (3pts min.). @ -As above X-rays interpreted by me (1pt min.). @ -X-ray shows no acute osseous pathology. Mild soft tissue swelling of the dorsal hand CT interpreted by me (1pt min.). @ -None done U/S interpreted by me (1pt. min.). @ -None done What testing was considered but not performed or refused? (CT, X-rays, U/S, labs)? Why? @ -None What meds were considered but not given or refused? Why? @ -None Did you discuss the management of the patient with other professionals (professionals i.e. TAY Dupree, ORGANISATION AND METHODS ANALYST, lab, RT, psych nurse, social and political studies professor, staff development coordinator, teacher, national insurance officer, telephonic nurse case manager)? Give summary @ -No Was smoking cessation discussed for >3mins.? @ -No Was critical care preformed (if so, how long)? @ -No Were there social determinants of health that impacted care today? How? (Homelessness, low income, unemployed, alcoholism, drug addiction, transportation, low edu. Level, literacy, decrease access to med. care, prison, r ehab)? @ -No Was there de-escalation of care discussed even if they declined (Discuss DNR or withdrawal of care, Hospice)? DNR status @ -No What co-morbidities impacted this encounter? (DM, HTN, Smoking, COPD, CAD, Cancer, CVA, ARF, Chemo, Hep., AIDS, mental health diagnosis, sleep apnea, morbid obesity)? @ -None Was patient admitted / discharged? Hospital course, mention meds given and route, prescriptions, significant lab abnormalities, going to OR and other pertinent info. @ -28-year-old male presenting with chief complaint of right hand injury after punching a pole. Workup initiated by triage. X-ray negative for fracture or dislocation. On exam he is neurovascularly intact and has full range of motion. Does have some tenderness and swelling over the knuckles. Educated on today's findings and supportive management at home. Follow-up with PCP. Report back to ER with any new or worsening symptoms. Discussed return parameters and answered all questions. Patient conveyed verbal understanding and agreed to the plan. I discussed this case in detail with my attending Dr. merida Undiagnosed new problem with uncertain prognosis? @ -No Drug Therapy requiring intensive monitoring for toxicity (Heparin, Nitro, Insulin, Cardizem)? @ -No Were any procedures done? @ -No Diagnosis/symptom? @ -Hand sprain Acute, or Chronic, or Acute on Chronic? @ -Acute Uncomplicated (without systemic symptoms) or Complicated (systemic symptoms)? @ -Uncomplicated Side effects of treatment? @ -No Exacerbation, Progression, or Severe Exacerbation? @ -No Poses a threat to life or bodily function? How? (Chest pain, [place], [place], pneumonia, PE, COPD, DKA, ARF, appy, cholecystitis, CVA, Diverticulitis, Homicidal, Suicidal, threat to staff... and all critical care pts) @ -Low likelihood (Rody Martinez) Disposition <Katherine Flores - Last Filed: 09/28/24 15:49> Is patient prescribed a controlled substance at d/c from ED?: No Time of Disposition: 17:31 <Rody Martinez - Last Filed: 10/02/24 17:13> Clinical Impression: Hand sprain Disposition: HOME SELF-CARE Condition: Good Instructions (If sedation given, give patient instructions): Hand Sprain (ED) Additional Instructions: Follow-up with PCP. Report back to ER with any new or worsening symptoms. Motrin and Tylenol for pain control. Rest ice and elevate the hand. Referrals: Waldemar Walker MD [Primary Care Provider] - 1-2 days
--- NOTE | 2024-09-28 16:27 | XR ---
EXAMINATION TYPE: XR hand complete RT DATE OF EXAM: 09/28/2024 4:20 PM INDICATION: Patient age:Male; 28 years old; Reason for study: punched pole swelling bruising; PHH. pain COMPARISON: Right wrist radiograph 01/04/2011 TECHNIQUE: Frontal, lateral and oblique views of the right hand were obtained. FINDINGS: Normal alignment of the visualized joints. No acute osseous pathology is identified. Mild soft tissue swelling of the dorsal hand. No radiopaque foreign body. IMPRESSION: 1. No acute osseous pathology. 2. Mild soft tissue swelling of the dorsal hand. [facility], , 09/28/2024 4:24 PM
[2024-09-28 17:42] VITALS: BP 140/85; PULSE 70; RESP 16; TEMP 98.8
== END 2024-09-28 17:42 | disposition home or self-care (01) ==
LOC: EC 15:06
DX: S63.91XA Sprain of unspecified part of right wrist and hand, initial encounter (principal); Z88.2 Allergy status to sulfonamides; Z88.1 Allergy status to other antibiotic agents; Z87.891 Personal history of nicotine dependence; W22.09XA Striking against other stationary object, initial encounter
CPT/HCPCS: 99283